=== PATIENT | male | born 1955 | race Caucasian/White ===

== ENCOUNTER 2016-05-25 10:29 | Inpatient (IN) | payer MEDICAID, MEDICARE ==
[~2016-05-25] VITALS: Ht 172.7 cm; Wt 78.6 kg
[2016-05-25] MEDS ORDERED: SODIUM CHLORIDE FLUSH 10ML SYR IVF ONE (11:30)
[2016-05-25] MEDS ORDERED: CLINDAMYCIN PMX 900MG/50ML 50 ML IV ONE (11:30)
[2016-05-25 11:55] LABS: HEMOGLOBIN 12.6 g/dL (13.7-18.0)
[2016-05-25 12:09] LABS: BLOOD UREA NITROGEN 14 mg/dL (7-18)
[2016-05-25 12:13] LABS: ASPARTATE AMINO TRANSFERASE 19 U/L (15-37)
[2016-05-25] MEDS ORDERED: CLINDAMYCIN PMX 900MG/50ML 50 ML ONE (12:14)
[2016-05-25 14:00] VITALS: BP 116/81
[2016-05-25] MEDS ORDERED: THIAMINE 100 MG in SODIUM CHLORIDE 0.9% 50 ML IV SCH (14:30)
[2016-05-25] MEDS ORDERED: THIAMINE 200 MG in SODIUM CHLORIDE 0.9% 50 ML IV ONE (14:30)
[2016-05-25] MEDS: NICOTINE 14MG/24 HR PATCH.TD24 TD SCH (18:18)
[2016-05-25] MEDS: ENOXAPARIN 40 MG/0.4 ML SQ SCH (18:18)
[2016-05-25 19:25] VITALS: BP 119/81
[2016-05-25] MEDS: CLINDAMYCIN PMX 600MG/50ML 50 ML IV SCH (19:52)
[2016-05-25 22:00] VITALS: BP 116/81
[2016-05-25] MEDS: POTASSIUM CHLORIDE 20 MEQ, MAGNESIUM SULFATE 1 GM, FOLIC ACID 1 MG, THIAMINE 100 MG, MV... IV SCH (22:12)
[2016-05-26 01:08] VITALS: BP 132/87
[2016-05-26 01:14] LABS: DAU SCREEN DISCLAIMER
[2016-05-26] MEDS: CLINDAMYCIN PMX 600MG/50ML 50 ML IV SCH ×3 (04:17→21:32)
[2016-05-26 06:18] LABS: HEMOGLOBIN 12.4 g/dL (13.7-18.0)
[2016-05-26 06:32] LABS: ASPARTATE AMINO TRANSFERASE 17 U/L (15-37); BLOOD UREA NITROGEN 13 mg/dL (7-18)
[2016-05-26 07:14] VITALS: BP 146/73
[2016-05-26] MEDS: FOLIC ACID 1 MG TABLET PO SCH (10:01)
[2016-05-26] MEDS ORDERED: LORazepam 1MG TABLET PO PRN (11:30)
[2016-05-26 13:49] VITALS: BP 125/80
[2016-05-26] MEDS: POTASSIUM CHLORIDE 20 MEQ, MAGNESIUM SULFATE 1 GM, FOLIC ACID 1 MG, THIAMINE 100 MG, MV... IV SCH (18:10)
[2016-05-26] MEDS: ENOXAPARIN 40 MG/0.4 ML SQ SCH (18:12)
[2016-05-26] MEDS: NICOTINE 14MG/24 HR PATCH.TD24 TD SCH (18:12)
[2016-05-26 19:36] VITALS: BP 124/79
[2016-05-27 01:27] VITALS: BP 118/85
[2016-05-27] MEDS: CLINDAMYCIN PMX 600MG/50ML 50 ML IV SCH ×3 (04:15→20:43)
[2016-05-27 07:55] VITALS: BP 136/82
[2016-05-27] MEDS: FOLIC ACID 1 MG TABLET PO SCH (09:14)
[2016-05-27 12:38] VITALS: BP 128/78
[2016-05-27] MEDS: ENOXAPARIN 40 MG/0.4 ML SQ SCH (16:53)
[2016-05-27] MEDS: NICOTINE 14MG/24 HR PATCH.TD24 TD SCH (16:53)
[2016-05-27] MEDS ORDERED: FUROSEMIDE 20 MG/2 ML IV ONE (18:00)
[2016-05-27] MEDS: POTASSIUM CHLORIDE 20 MEQ, MAGNESIUM SULFATE 1 GM, FOLIC ACID 1 MG, THIAMINE 100 MG, MV... IV SCH (18:19)
[2016-05-27 19:39] VITALS: BP 102/67
[2016-05-28 03:01] VITALS: BP 113/82
[2016-05-28] MEDS: CLINDAMYCIN PMX 600MG/50ML 50 ML IV SCH ×3 (03:49→20:08)
[2016-05-28 05:45] LABS: HEMOGLOBIN 12.6 g/dL (13.7-18.0)
[2016-05-28 05:55] LABS: BLOOD UREA NITROGEN 11 mg/dL (7-18)
[2016-05-28] MEDS: FOLIC ACID 1 MG TABLET PO SCH (08:49)
[2016-05-28] MEDS: MULTIVITAMIN 1 TABLET PO SCH (08:49)
[2016-05-28] MEDS: MAGNESIUM OXIDE 400 MG TABLET PO SCH (08:49)
[2016-05-28 09:50] VITALS: BP 119/64
[2016-05-28 12:42] VITALS: BP 126/67
[2016-05-28] MEDS: ENOXAPARIN 40 MG/0.4 ML SQ SCH (15:57)
[2016-05-28] MEDS: NICOTINE 14MG/24 HR PATCH.TD24 TD SCH (15:58)
[2016-05-28] MEDS ORDERED: POTASSIUM CHLORIDE 20 MEQ PACKET PO SCH (17:00)
[2016-05-28 20:29] VITALS: BP 120/74
[2016-05-29 01:53] VITALS: BP 125/82
[2016-05-29] MEDS: CLINDAMYCIN PMX 600MG/50ML 50 ML IV SCH ×2 (04:15→12:12)
[2016-05-29 07:29] VITALS: BP 139/89
[2016-05-29] MEDS: MULTIVITAMIN 1 TABLET PO SCH (08:50)
[2016-05-29] MEDS: FOLIC ACID 1 MG TABLET PO SCH (08:50)
[2016-05-29] MEDS: MAGNESIUM OXIDE 400 MG TABLET PO SCH (08:50)
[2016-05-29] MEDS ORDERED: MULT1TAB60 PO (11:43)
[2016-05-29] MEDS ORDERED: CLIN300C93 PO (11:43)
== END 2016-05-29 13:59 | disposition home or self-care (01) | DRG 602 ==
LOC: ED 13:00 → UNDOADMOB 13:01 → 3NE 13:01 → INTOOBSV 13:01 → ED 13:12 → 3NE 13:45
PROVIDERS: ADMIT Hospitalist; ATTEND Hospitalist
DX: L03.115 Cellulitis of right lower limb (principal); I50.33 Acute on chronic diastolic (congestive) heart failure; L03.116 Cellulitis of left lower limb; F10.20 Alcohol dependence, uncomplicated; F17.210 Nicotine dependence, cigarettes, uncomplicated; Z59.0 Homelessness; D53.9 Nutritional anemia, unspecified
CPT/HCPCS: 36415; 71010; 80048; 80053; 80307; 83605; 83880; 84145; 85025; 85651; 87040; 93970; 96365; J1650; J3411; J3475; J3480; J7042; J1940

== ENCOUNTER 2018-01-03 16:49 | Inpatient (IN) | payer MEDICARE, MEDICAID ==
[~2018-01-03] VITALS: Ht 172.7 cm; Wt 89.7 kg
[~2018-01-03 16:49] MED LIST: CLIN300C8 PO; MULT1TAB60 PO
[2018-01-03 18:58] LABS: BASOPHILS # (AUTO) 0.03 x10^3/uL (0-0.1); BASOPHILS % (AUTO) 1 % (0-1); EOSINOPHILS # (AUTO) 0.02 x10^3/uL (0-0.4); EOSINOPHILS % (AUTO) 0 % (1-7); LYMPHOCYTES % (AUTO) 32 % (22-44); MD NO; MEAN CORPUSCULAR HGB CONC 34.3 g/dL (33.2-36.2); MEAN CORPUSCULAR VOLUME 107.9 fL (81-97); MONOCYTES # (AUTO) 0.54 x10^3/uL (0.2-0.8); MONOCYTES % (AUTO) 11 % (2-9); NEUTROPHILS # (AUTO) 2.69 x10^3/uL (1.8-6.8); NEUTROPHILS % (AUTO) 56 % (42-75); PLATELET COUNT 187 x10^3/uL (130-400); RED BLOOD COUNT 3.62 x10^6/uL (4.38-5.82); RED CELL DISTRIBUTION WIDTH 20.6 % (9.4-14.8)
[2018-01-03] MEDS ORDERED: SODIUM CHLORIDE FLUSH 10ML SYR IVF ONE (19:00)
[2018-01-03 19:05] LABS: ALANINE AMINOTRANSFERASE 35 U/L (12-78); ALBUMIN 3.2 g/dL (3.4-5.0); ANION GAP 12 mmol/L (5-15); CALCIUM 7.8 mg/dL (8.5-10.1); CHLORIDE 109 mmol/L (98-107); CREATININE 0.56 mg/dL (0.7-1.3)
[2018-01-03 19:12] LABS: ALKALINE PHOSPHATASE 128 U/L (45-117); BILIRUBIN,TOTAL 0.3 mg/dL (0.2-1.0); TOTAL PROTEIN 7.2 g/dL (6.4-8.2); TROPONIN I < 0.015 ng/mL (0.000-0.045)
[2018-01-03] MEDS ORDERED: POTASSIUM CHLORIDE 20 MEQ TAB.ER.PRT ONE (20:54)
[2018-01-03] MEDS ORDERED: AMPICILLIN/SULBACTAM 3 GM in SODIUM CHLORIDE 0.9% 100 ML IVPB ONE (21:00)
[2018-01-03] MEDS ORDERED: POTASSIUM CHLORIDE 20 MEQ TAB.ER.PRT PO ONE (21:00)
[2018-01-03 23:19] VITALS: BP 137/82
[2018-01-04] MEDS ORDERED: hydrALAzine 20 MG/ML, 1ML IVPush PRN
[2018-01-04] MEDS ORDERED: DOCUSATE 100 MG CAPSULE PO PRN
[2018-01-04] MEDS ORDERED: ACETAMINOPHEN 325 MG TABLET PO PRN
[2018-01-04] MEDS ORDERED: ONDANSETRON ODT 4 MG PO PRN
[2018-01-04] MEDS: ENOXAPARIN 40 MG/0.4 ML SQ SCH (00:26)
[2018-01-04] MEDS: D5%-0.45% NACL 1,000 ML IV SCH ×3 (00:27→20:03)
[2018-01-04] MEDS: AMPICILLIN/SULBACTAM 3 GM in SODIUM CHLORIDE 0.9% 100 ML IV SCH ×4 (03:08→21:45)
[2018-01-04 05:38] VITALS: BP 118/75
[2018-01-04 08:15] VITALS: BP 140/86
[2018-01-04] MEDS: MULTIVITAMIN 1 TABLET PO SCH (08:57)
[2018-01-04] MEDS: FOLIC ACID 1 MG TABLET PO SCH (08:57)
[2018-01-04] MEDS: LORazepam 1MG TABLET PO PRN (08:57)
[2018-01-04 14:58] VITALS: BP 127/79
[2018-01-04 20:35] VITALS: BP 139/77
[2018-01-05] MEDS: LORazepam 1MG TABLET PO PRN (00:37)
[2018-01-05] MEDS: ENOXAPARIN 40 MG/0.4 ML SQ SCH ×2 (00:37→23:37)
[2018-01-05 01:06] VITALS: BP 131/66
[2018-01-05] MEDS: AMPICILLIN/SULBACTAM 3 GM in SODIUM CHLORIDE 0.9% 100 ML IV SCH ×4 (04:53→23:37)
[2018-01-05] MEDS: D5%-0.45% NACL 1,000 ML IV SCH ×3 (05:43→23:36)
[2018-01-05 07:45] VITALS: BP 148/90
[2018-01-05] MEDS: FOLIC ACID 1 MG TABLET PO SCH (09:25)
[2018-01-05] MEDS: MULTIVITAMIN 1 TABLET PO SCH (09:25)
[2018-01-05] MEDS: METOPROLOL TARTRATE 25 MG TABLET PO SCH ×2 (09:26→18:04)
[2018-01-05 12:03] VITALS: BP 147/88
[2018-01-05] MEDS ORDERED: FUROSEMIDE 20 MG/2 ML IV ONE (14:30)
[2018-01-05] MEDS ORDERED: POTASSIUM CHLORIDE 20 MEQ TAB.ER.PRT PO ONE (14:30)
[2018-01-05] MEDS ORDERED: NICOTINE 21 MG/24 HR PATCH.TD24 TD ONE (15:30)
[2018-01-05 20:09] VITALS: BP 136/89
[2018-01-06 00:10] VITALS: BP 139/80
[2018-01-06 05:34] VITALS: BP 147/94
[2018-01-06] MEDS: METOPROLOL TARTRATE 25 MG TABLET PO SCH (05:36)
[2018-01-06] MEDS: AMPICILLIN/SULBACTAM 3 GM in SODIUM CHLORIDE 0.9% 100 ML IV SCH (05:36)
[2018-01-06 06:54] VITALS: BP 137/92
== END 2018-01-06 07:38 | disposition left against medical advice (07) | DRG 602 ==
LOC: ED 17:30 → EDIP 22:06 → 4WST 23:14
PROVIDERS: ADMIT Internal Medicine; ATTEND Internal Medicine
DX: L03.115 Cellulitis of right lower limb (principal); J96.21 Acute and chronic respiratory failure with hypoxia; I50.30 Unspecified diastolic (congestive) heart failure; L03.116 Cellulitis of left lower limb; F10.229 Alcohol dependence with intoxication, unspecified; N49.2 Inflammatory disorders of scrotum; Z53.21 Procedure and treatment not carried out due to patient leaving prior to being seen by health care provider; E87.6 Hypokalemia; F17.200 Nicotine dependence, unspecified, uncomplicated; Z59.0 Homelessness; R29.6 Repeated falls; N50.89 Other specified disorders of the male genital organs; I87.8 Other specified disorders of veins; I48.91 Unspecified atrial fibrillation
CPT/HCPCS: 36415; 71045; 80053; 82962; 83880; 84484; 85025; 93005; 93306; 96365; G0378; J0295; J1650; J1940

== ENCOUNTER 2018-02-20 04:42 | Emergency (ER) | payer SELFPAY | END 2018-02-20 05:08 | disposition home or self-care (01) | LOC: ED 04:55 | DX: Z02.9 Encounter for administrative examinations, unspecified (principal) ==

== ENCOUNTER 2018-07-07 10:09 | Inpatient (IN) | payer MEDICARE, OTHER ==
[~2018-07-07] VITALS: Ht 172.7 cm; Wt 76.1 kg
[2018-07-07] MEDS: INSULIN LISPRO 100 UNITS/ML, PEN SQ-INSULIN SCH (00:15)
[~2018-07-07 10:09] MED LIST changes: +ETOMIDATE 20 MG/10 ML ONE; +PROPOFOL 10 MG/ML, 100ML IV ONE; +SUCCINYLCHOLINE 20 MG/ML, 10ML ONE
--- NOTE | 2018-07-07 10:30 | NUR ---
Late entry - Pt BIB EMS for weakness and difficulty with ambulation. Pt A&OX4. States he normally drinks 1 - 2 pints per day. States last drink 1.5 days ago. Pt appears slightly tremulous. Pt states he is unable to stand or walk. Transferred to [facility]. Upon initial assessment pt HR noted to be rapid and irregular. CP moniotrs applied. Spo2 on RA 83%, O2 applied and sats mainatining >90%. Insects found on pt, appears to be lice. Contact precautions in place. Pt is a poor historian but states he has a history of seizures. not on any medications at this time.
[2018-07-07] MEDS ORDERED: DILTIAZEM 5 MG/ML, 10ML ONE (10:33)
[2018-07-07] MEDS ORDERED: DILTIAZEM 125 MG in DEXTROSE 5% 100 ML IV SCH (10:33)
[2018-07-07 10:48] LABS: ALBUMIN 2.3 g/dL (3.4-5.0); ANION GAP 12 mmol/L (5-15); CALCIUM 8.3 mg/dL (8.5-10.1); CHLORIDE 93 mmol/L (98-107); CREATININE 0.79 mg/dL (0.7-1.3)
[2018-07-07 10:54] LABS: INTERNATIONAL NORMALIZED RATIO 1.09 (0.93-1.1); PROTHROMBIN TIME 11.4 Seconds (9.6-11.5)
[2018-07-07] MEDS ORDERED: SODIUM CHLORIDE 0.9% 1,000 ML IV ONE (10:59)
[2018-07-07] MEDS ORDERED: AZITHROMYCIN 500 MG in SODIUM CHLORIDE 0.9% 250 ML IVPB ONE (11:00)
[2018-07-07] MEDS ORDERED: CEFTRIAXONE PMX 1GM/50ML 50 ML IVPB ONE (11:00)
[2018-07-07] MEDS ORDERED: DILTIAZEM 5 MG/ML, 5ML IV ONE (11:00)
[2018-07-07] MEDS ORDERED: SODIUM CHLORIDE FLUSH 10ML SYR IVF ONE ×2 (11:00)
[2018-07-07] MEDS ORDERED: SODIUM CHLORIDE 0.9% 1,000ML IVBOLUS ONE ×4 (11:00→23:30)
[2018-07-07 11:07] LABS: TROPONIN I < 0.015 ng/mL (0.000-0.045)
--- NOTE | 2018-07-07 11:46 | NUR ---
Lab at bedside attempting blood draw for cultures with difficulty. Will start abx therapy once BC obtained. Md notified of pt BP, new orders recieved and implemented.
[2018-07-07] MEDS ORDERED: CEFTRIAXONE PMX 1GM/50ML 50 ML ONE (11:55)
[2018-07-07] MEDS ORDERED: SODIUM CHLORIDE FLUSH 10ML SYR IVF PRN (12:30)
[2018-07-07 12:33] LABS: MEAN CORPUSCULAR HEMOGLOBIN 32.9 pg (27.5-34.5); MEAN CORPUSCULAR VOLUME 99.6 fL (81-97); RED CELL DISTRIBUTION WIDTH 18.6 % (9.4-14.8)
--- NOTE | 2018-07-07 12:38 | NUR ---
Pt incontinent of urine and feces, refusing to change out of soiled clothes at this time. Pt linens changed.
[2018-07-07 12:46] LABS: MEAN PLATELET VOLUME 8.7 fL (7.4-10.4); PLATELET COUNT 70 x10^3/uL (130-400)
[2018-07-07 12:47] LABS: MD YES
[2018-07-07 12:50] LABS: ANISOCYTOSIS 1+; BAND#(MANUAL) 1.04 x10^3/uL; BANDS%(MANUAL) 23 % (0-7); EOS#(MANUAL) 0.05 x10^3/uL (0.0-0.4); EOS% (MANUAL) 1 % (1-7); LYMPH#(MANUAL) 0.18 x10^3/uL (1-3.4); LYMPHS% (MANUAL) 4 % (22-44); MONOS#(MANUAL) 0.09 x10^3/uL (0.3-2.7); MONOS% (MANUAL) 2 % (2-9); SEG#(MANUAL) 3.15 x10^3/uL (1.8-6.8); SEGS% (MANUAL) 70 % (42-75)
[2018-07-07 12:52] LABS: <PLATELET ESTIMATE> DECREASED; <PLT MORPHOLOGY> NORMAL PLT MORPH; PMNS WITH VACUOLES 1+; TOXIC GRAN 2+
[2018-07-07] MEDS ORDERED: D5%-0.9% NACL+KCL 20MEQ 1,000 ML IV SCH (13:30)
[2018-07-07] MEDS ORDERED: ENOXAPARIN 40 MG/0.4 ML SQ SCH (13:30)
[2018-07-07] MEDS ORDERED: NICOTINE 14MG/24 HR PATCH.TD24 TD SCH (13:30)
[2018-07-07] MEDS ORDERED: morphine SULFATE 10 MG/ML, 1ML IVPush PRN (13:30)
[2018-07-07] MEDS ORDERED: ACETAMINOPHEN 325 MG TABLET PO PRN (13:30)
[2018-07-07] MEDS ORDERED: DOCUSATE 100 MG CAPSULE PO PRN (13:30)
[2018-07-07] MEDS ORDERED: LORazepam 0.5MG TABLET PO PRN (13:30)
[2018-07-07] MEDS ORDERED: ONDANSETRON ODT 4 MG PO PRN (13:30)
[2018-07-07] MEDS ORDERED: LORazepam 2 MG/ML, 1ML IV PRN ×5 (13:30)
[2018-07-07] MEDS ORDERED: OXYcodone IR 5MG TABLET PO PRN (13:30)
[2018-07-07] MEDS ORDERED: hydrALAzine 20 MG/ML, 1ML IVPush PRN (13:30)
[2018-07-07] MEDS ORDERED: CEFTRIAXONE PMX 1GM/50ML 50 ML IV ONE (13:30)
[2018-07-07] MEDS ORDERED: ONDANSETRON 2MG/ML, 2ML IVPush PRN (13:30)
[2018-07-07] MEDS ORDERED: LORazepam 1MG TABLET PO PRN ×4 (13:30)
[2018-07-07] MEDS ORDERED: POLYETHYLENE GLYCOL 17 GM PACKET PO PRN (13:30)
[2018-07-07] MEDS ORDERED: BISACODYL 10 MG SUPP PR PRN ×2 (13:30→19:30)
[2018-07-07] MEDS ORDERED: PROMETHAZINE 25 MG/ML, 1ML IM PRN (13:30)
[2018-07-07 13:45] LABS: FREE T4 (FREE THYROXINE) 1.13 ng/dL (0.76-1.46); THYROID STIMULATING HORMONE 1.47 mIU/L (0.358-3.740)
[2018-07-07 13:53] LABS: ALBUMIN 2.3 g/dL (3.4-5.0)
[2018-07-07 14:01] LABS: HEMOGLOBIN A1C 5.7 % (4.2-6.3)
[2018-07-07] MEDS ORDERED: ENOXAPARIN 40 MG/0.4 ML ONE (14:03)
[2018-07-07] MEDS ORDERED: NICOTINE 14MG/24 HR PATCH.TD24 ONE (14:03)
[2018-07-07] MEDS ORDERED: LORazepam 2 MG/ML, 1ML ONE ×2 (14:04→18:53)
[2018-07-07 14:17] LABS: BILIRUBIN, DIRECT 1.5 mg/dL (0.1-0.2); BILIRUBIN,INDIRECT 0.8 mg/dL (0.0-2.0); BILIRUBIN,TOTAL 2.3 mg/dL (0.2-1.0); FOLATE LEVEL 5.1 ng/mL (3.1-17.5); TOTAL PROTEIN 6.9 g/dL (6.4-8.2)
--- NOTE | 2018-07-07 14:18 | NUR ---
Patient tremulous and tachycardic. Ativan, lovenox, and nicotene patch admin. Patient refusing to remove pants to be cleaned. Will continue to monitor.
--- NOTE | 2018-07-07 14:52 | NUR ---
BP = 106/67 HR = 140 despite cardizem and ativan admin. RN attempted to call MD Tita. Tita states he is in a patient's room and to call back in 5 min.
[2018-07-07] MEDS ORDERED: PIPERONYL BUTOXIDE/PYRETHRINS SHAMPOO TP ONE (15:00)
--- NOTE | 2018-07-07 15:03 | NUR ---
RN spoke to MD melissa Rivers MD to place order for digoxin.
[2018-07-07] MEDS ORDERED: DIGOXIN 0.25 MG/ML, 2ML ONE (15:08)
[2018-07-07] MEDS ORDERED: DIGOXIN 0.25 MG/ML, 2ML IVPush ONE (15:30)
--- NOTE | 2018-07-07 16:06 | NUR ---
Patient cleaned with lice shampoo, linens changed, and head shaved. Repositioned for comfort.
--- NOTE | 2018-07-07 16:07 | NUR ---
Report to TIFFANIE Webb.
[2018-07-07] MEDS ORDERED: LORazepam 20 MG in SODIUM CHLORIDE 0.9% 240 ML IV PRN (18:30)
[2018-07-07] MEDS ORDERED: SODIUM CHLORIDE 0.9% IV ONE (19:00)
[2018-07-07] MEDS ORDERED: LORazepam 2 MG/ML, 1ML IVPush ONE ×3 (19:00→20:00)
[2018-07-07] MEDS ORDERED: PHENOBARBITAL SODIUM IV ONE (19:00)
[2018-07-07] MEDS ORDERED: DEXTROSE 50%, 50ML SYRINGE IVPush PRN (19:30)
[2018-07-07] MEDS ORDERED: LIDOCAINE-MPF 1%, 2ML ENDO PRN (19:30)
[2018-07-07] MEDS ORDERED: PHARMACY MAY ADJ FOR RENAL FX MC SCH (19:30)
[2018-07-07] MEDS ORDERED: GLUCAGON 1 MG IM PRN (19:30)
[2018-07-07] MEDS ORDERED: SODIUM CHLORIDE 0.9% 1,000 ML IV SCH (19:30)
[2018-07-07] MEDS ORDERED: DEXTROSE 4 GM TAB.CHEW PO PRN (19:30)
[2018-07-07] MEDS ORDERED: DILTIAZEM 125 MG in SODIUM CHLORIDE 0.9% 100 ML IV PRN (19:30)
[2018-07-07] MEDS: AMPICILLIN/SULBACTAM 3 GM in SODIUM CHLORIDE 0.9% 100 ML IV SCH (19:30)
[2018-07-07] MEDS ORDERED: FENTANYL PF 100 MCG/2ML IVPush PRN (19:30)
[2018-07-07] MEDS: ALBUTEROL/IPRATROPIUM 2.5MG/0.5MG, 3 ML INLINE SCH ×2 (19:30→22:52)
[2018-07-07] MEDS ORDERED: SENNA/DOCUSATE TABLET NG PRN (19:30)
[2018-07-07] MEDS ORDERED: SENNA 176 MG/5 ML ORAL SOL NG PRN (19:30)
[2018-07-07] MEDS ORDERED: LACTULOSE 20 GM/30 ML UDC NG PRN (19:30)
[2018-07-07 20:21] LABS: INTERNATIONAL NORMALIZED RATIO 1.02 (0.93-1.1); PROTHROMBIN TIME 10.7 Seconds (9.6-11.5)
[2018-07-07 20:24] LABS: TRIGLYCERIDES 181 mg/dL (50-200)
[2018-07-07 20:25] LABS: SALICYLATE LEVEL 4.3 mg/dL (2.8-20.0)
[2018-07-07 20:28] LABS: ACETAMINOPHEN < 2 mcg/mL (10-30); TROPONIN I < 0.015 ng/mL (0.000-0.045)
[2018-07-07 20:28] LABS: MICROSCOPIC INDICATED
[2018-07-07 20:32] LABS: AMPHETAMINE SCREEN, URINE Negative (Negative); BARBITURATE SCREEN, URINE Negative (Negative); BENZODIAZEPINE SCREEN, URINE Negative (Negative); CANNABINOID SCREEN, URINE Negative (Negative); COCAINE SCREEN, URINE Negative (Negative); METHADONE SCREEN, URINE Negative (Negative); OPIATE SCREEN, URINE Negative (Negative)
[2018-07-07 20:37] LABS: MD YES; MEAN CORPUSCULAR HEMOGLOBIN 33.8 pg (27.5-34.5); MEAN CORPUSCULAR VOLUME 99.5 fL (81-97); MEAN PLATELET VOLUME 8.5 fL (7.4-10.4); PLATELET COUNT 59 x10^3/uL (130-400); RED CELL DISTRIBUTION WIDTH 19.1 % (9.4-14.8)
[2018-07-07 20:43] LABS: CULTURE INDICATED? NO
[2018-07-07 20:47] LABS: BAND#(MANUAL) 0.59 x10^3/uL; BANDS%(MANUAL) 18 % (0-7); LYMPHS% (MANUAL) 6 % (22-44); MONOS#(MANUAL) 0.13 x10^3/uL (0.3-2.7); MONOS% (MANUAL) 4 % (2-9); SEG#(MANUAL) 2.38 x10^3/uL (1.8-6.8); SEGS% (MANUAL) 72 % (42-75)
[2018-07-07 20:48] LABS: <PLATELET ESTIMATE> DECREASED; <PLT MORPHOLOGY> NORMAL PLT MORPH; ANISOCYTOSIS 1+; TARGET CELLS 1+
[2018-07-07 20:49] LABS: PMNS WITH VACUOLES 1+; TOXIC GRAN 2+
[2018-07-07] MEDS ORDERED: ALBUMIN HUMAN 5% 500 ML IV PRN (21:00)
[2018-07-07] MEDS: SODIUM CHLORIDE FLUSH 10ML SYR IVF SCH (21:00)
[2018-07-07] MEDS ORDERED: AMIODARONE 900 MG in DEXTROSE 5% 482 ML IV PRN (21:00)
[2018-07-07] MEDS ORDERED: ALBUMIN HUMAN 25% 100 ML IV ONE (23:30)
[2018-07-08 02:30] LABS: ALANINE AMINOTRANSFERASE 37 U/L (12-78); ALBUMIN 2.4 g/dL (3.4-5.0); ANION GAP 11 mmol/L (5-15); CALCIUM 7.1 mg/dL (8.5-10.1); CHLORIDE 105 mmol/L (98-107)
[2018-07-08] MEDS ORDERED: NOREPINEPHRINE 4 MG in SODIUM CHLORIDE 0.9% 246 ML IV PRN (02:30)
[2018-07-08 02:33] LABS: ALKALINE PHOSPHATASE 47 U/L (45-117); BILIRUBIN,TOTAL 1.3 mg/dL (0.2-1.0); CHOLESTEROL, TOTAL 64 mg/dL (140-239); HDL CHOL % 13 % (26-37); HDL CHOLESTEROL (DIRECT) 8 mg/dL (40-60); LDL CHOLESTEROL,CALCULATED 12 mg/dL (54-169); LDL/HDL RATIO 1.5 (0.5-3.0); TOTAL PROTEIN 5.5 g/dL (6.4-8.2); TRIGLYCERIDES 220 mg/dL (50-200); VLDL CHOLESTEROL 44 mg/dL (0-25)
[2018-07-08 02:46] LABS: MEAN CORPUSCULAR HEMOGLOBIN 33.1 pg (27.5-34.5); MEAN CORPUSCULAR HGB CONC 33.3 g/dL (33.2-36.2); MEAN CORPUSCULAR VOLUME 99.2 fL (81-97); MEAN PLATELET VOLUME 8.8 fL (7.4-10.4); PLATELET COUNT 51 x10^3/uL (130-400); RED BLOOD COUNT 3.18 x10^6/uL (4.38-5.82); RED CELL DISTRIBUTION WIDTH 18.4 % (9.4-14.8)
[2018-07-08 02:52] LABS: CREATINE KINASE, TOTAL 434 U/L (39-308); TROPONIN I < 0.015 ng/mL (0.000-0.045)
[2018-07-08 03:17] LABS: BASOPHILS # (AUTO) 0.01 x10^3/uL (0-0.1); BASOPHILS % (AUTO) 0 % (0-1); EOSINOPHILS % (AUTO) 0 % (1-7); LYMPHOCYTES # (AUTO) 0.42 x10^3/uL (1-3.4); LYMPHOCYTES % (AUTO) 16 % (22-44); MD SCAN; MONOCYTES # (AUTO) 0.07 x10^3/uL (0.2-0.8); MONOCYTES % (AUTO) 3 % (2-9); NEUTROPHILS # (AUTO) 2.17 x10^3/uL (1.8-6.8); NEUTROPHILS % (AUTO) 82 % (42-75)
[2018-07-08] MEDS: AMPICILLIN/SULBACTAM 3 GM in SODIUM CHLORIDE 0.9% 100 ML IV SCH (03:27)
[2018-07-08] MEDS: ALBUTEROL/IPRATROPIUM 2.5MG/0.5MG, 3 ML INLINE SCH ×6 (03:30→22:35)
[2018-07-08 04:00] VITALS: BP 89/55
[2018-07-08 04:12] VITALS: BP 96/48
[2018-07-08] MEDS ORDERED: VANCOMYCIN 1,600 MG in SODIUM CHLORIDE 0.9% 250 ML IV SCH (06:00)
[2018-07-08] MEDS ORDERED: PHARMACOKINETIC CONSULTATION MC ONE (06:00)
[2018-07-08] MEDS ORDERED: VANCOMYCIN PER PHARMACY MC PRN (06:00)
[2018-07-08] MEDS ORDERED: ASPIRIN 325 MG TABLET EC PO SCH (06:00)
[2018-07-08] MEDS ORDERED: PHARMACOKINETIC MONITORING MC PRN (06:00)
[2018-07-08] MEDS: INSULIN LISPRO 100 UNITS/ML, PEN SQ-INSULIN SCH ×4 (06:12→21:00)
[2018-07-08] MEDS: POTASSIUM CHLORIDE 20 MEQ, MAGNESIUM SULFATE 1 GM, MVI ADULT 10 ML, THIAMINE 200 MG, FO... IV SCH (07:00)
[2018-07-08 08:47] LABS: RAPID INFLUENZA A Negative (Negative); RAPID INFLUENZA B Negative (Negative)
[2018-07-08] MEDS ORDERED: MULTIVITAMINS/MINERALS TABLET PO SCH (09:00)
[2018-07-08] MEDS ORDERED: FOLIC ACID 1 MG TABLET PO SCH (09:00)
[2018-07-08] MEDS ORDERED: THIAMINE 100MG TABLET PO SCH ×2 (09:00)
[2018-07-08] MEDS ORDERED: DIGOXIN 0.25 MG/ML, 2ML IVPush SCH (09:00)
[2018-07-08] MEDS: CEFTRIAXONE PMX 1GM/50ML 50 ML IV SCH (09:12)
[2018-07-08] MEDS: METRONIDAZOLE PMX 500MG/100ML 100 ML IV SCH ×3 (09:12→23:01)
[2018-07-08] MEDS: POTASSIUM CHLORIDE 10% 40 MEQ/30 ML UDC PO SCH ×2 (09:12→21:45)
[2018-07-08] MEDS: DIAZEPAM 5 MG/ML, 2ML IV SCH ×4 (09:13→21:44)
[2018-07-08] MEDS: SODIUM CHLORIDE FLUSH 10ML SYR IVF SCH ×2 (09:13→21:45)
[2018-07-08] MEDS ORDERED: CEFTRIAXONE PMX 2GM/50ML 50 ML IV SCH (10:00)
[2018-07-08] MEDS ORDERED: VASOPRESSIN 100 UNIT in SODIUM CHLORIDE 0.9% 495 ML IV PRN (10:00)
[2018-07-08] MEDS ORDERED: AZITHROMYCIN 500 MG in SODIUM CHLORIDE 0.9% 250 ML IV SCH (10:00)
[2018-07-08] MEDS: ERGOCALCIFEROL 50,000 UNIT CAPSULE PO SCH (10:11)
[2018-07-08] MEDS: HEPARIN 5,000 UNITS/ML, 1ML SQ SCH ×2 (10:11→17:57)
[2018-07-08] MEDS: PROPOFOL 100 ML IV PRN (15:15)
[2018-07-08] MEDS ORDERED: FENTANYL PF 2,500 MCG in SODIUM CHLORIDE 0.9% 200 ML IV PRN (17:30)
[2018-07-09] MEDS: DIAZEPAM 5 MG/ML, 2ML IV SCH ×6 (00:56→21:48)
[2018-07-09] MEDS: PROPOFOL 100 ML IV PRN ×4 (00:56→23:23)
[2018-07-09] MEDS: HEPARIN 5,000 UNITS/ML, 1ML SQ SCH ×3 (01:54→17:22)
[2018-07-09] MEDS ORDERED: NOREPINEPHRINE 4 MG in SODIUM CHLORIDE 0.9% 246 ML IV PRN (02:30)
[2018-07-09] MEDS: ALBUTEROL/IPRATROPIUM 2.5MG/0.5MG, 3 ML INLINE SCH ×6 (03:40→22:16)
[2018-07-09 04:00] VITALS: BP 94/64
[2018-07-09 04:13] LABS: MEAN CORPUSCULAR HEMOGLOBIN 34.3 pg (27.5-34.5); MEAN CORPUSCULAR HGB CONC 34.3 g/dL (33.2-36.2); MEAN CORPUSCULAR VOLUME 99.9 fL (81-97); MEAN PLATELET VOLUME 8.1 fL (7.4-10.4); RED BLOOD COUNT 3.53 x10^6/uL (4.38-5.82); RED CELL DISTRIBUTION WIDTH 19.5 % (9.4-14.8)
[2018-07-09 04:15] LABS: PLATELET COUNT 47 x10^3/uL (130-400)
[2018-07-09 04:26] LABS: BASOPHILS # (AUTO) 0.01 x10^3/uL (0-0.1); BASOPHILS % (AUTO) 0 % (0-1); EOSINOPHILS # (AUTO) 0.05 x10^3/uL (0-0.4); EOSINOPHILS % (AUTO) 1 % (1-7); LYMPHOCYTES # (AUTO) 0.53 x10^3/uL (1-3.4); LYMPHOCYTES % (AUTO) 11 % (22-44); MD SCAN; MONOCYTES # (AUTO) 0.22 x10^3/uL (0.2-0.8); MONOCYTES % (AUTO) 5 % (2-9); NEUTROPHILS # (AUTO) 4.11 x10^3/uL (1.8-6.8); NEUTROPHILS % (AUTO) 83 % (42-75)
[2018-07-09] MEDS: CEFTRIAXONE PMX 1GM/50ML 50 ML IV SCH (05:53)
[2018-07-09] MEDS ORDERED: MAGNESIUM SULFATE PMX 4GM/100M 100 ML IV ONE (06:30)
[2018-07-09] MEDS ORDERED: SODIUM PHOSPHATE 20 MMOL in SODIUM CHLORIDE 0.9% 500 ML IV ONE (06:30)
[2018-07-09 06:45] LABS: ANION GAP 9 mmol/L (5-15); CHLORIDE 119 mmol/L (98-107)
[2018-07-09 06:46] LABS: CREATININE 0.19 mg/dL (0.7-1.3)
[2018-07-09 06:52] LABS: CALCIUM 5.8 mg/dL (8.5-10.1)
[2018-07-09] MEDS: INSULIN LISPRO 100 UNITS/ML, PEN SQ-INSULIN SCH ×3 (07:00→21:36)
[2018-07-09] MEDS: POTASSIUM CHLORIDE 10% 40 MEQ/30 ML UDC PO SCH ×2 (09:09→21:47)
[2018-07-09] MEDS: SODIUM CHLORIDE FLUSH 10ML SYR IVF SCH ×2 (09:10→21:36)
[2018-07-09] MEDS ORDERED: CALCIUM CHLORIDE 13.6 MEQ in SODIUM CHLORIDE 0.9% 100 ML IV ONE (10:00)
[2018-07-09] MEDS: POTASSIUM CHLORIDE 20 MEQ, MAGNESIUM SULFATE 1 GM, MVI ADULT 10 ML, THIAMINE 200 MG, FO... IV SCH (10:50)
--- NOTE | 2018-07-09 11:28 | NUR ---
TF GOAL: w/ propofol: PROMOTE @ 75ml/hr off propofol: PROMOTE @ 80ml/hr
[2018-07-09] MEDS: ERTAPENEM 1 GM in SODIUM CHLORIDE 0.9% 50 ML IV SCH (12:31)
[2018-07-10] MEDS: DIAZEPAM 5 MG/ML, 2ML IV SCH ×2 (01:13→04:33)
[2018-07-10] MEDS: HEPARIN 5,000 UNITS/ML, 1ML SQ SCH ×3 (02:26→17:15)
[2018-07-10] MEDS: ALBUTEROL/IPRATROPIUM 2.5MG/0.5MG, 3 ML INLINE SCH ×6 (03:00→22:32)
[2018-07-10 04:00] VITALS: BP 85/55
[2018-07-10] MEDS: INSULIN LISPRO 100 UNITS/ML, PEN SQ-INSULIN SCH ×3 (04:02→15:00)
[2018-07-10 04:37] LABS: MEAN CORPUSCULAR HEMOGLOBIN 34.2 pg (27.5-34.5); MEAN CORPUSCULAR HGB CONC 34.6 g/dL (33.2-36.2); MEAN CORPUSCULAR VOLUME 98.9 fL (81-97); MEAN PLATELET VOLUME 9.6 fL (7.4-10.4); PLATELET COUNT 74 x10^3/uL (130-400); RED BLOOD COUNT 3.56 x10^6/uL (4.38-5.82); RED CELL DISTRIBUTION WIDTH 19.7 % (9.4-14.8)
[2018-07-10 04:45] LABS: ANION GAP 5 mmol/L (5-15); CALCIUM 8.2 mg/dL (8.5-10.1); CHLORIDE 105 mmol/L (98-107); CREATININE 0.51 mg/dL (0.7-1.3)
[2018-07-10 04:47] LABS: TRIGLYCERIDES 154 mg/dL (50-200)
[2018-07-10 05:21] LABS: MD YES
[2018-07-10 05:23] LABS: BAND#(MANUAL) 0.55 x10^3/uL; BANDS%(MANUAL) 6 % (0-7); LYMPH#(MANUAL) 0.74 x10^3/uL (1-3.4); LYMPHS% (MANUAL) 8 % (22-44); METAMYELOCYTES# (MANUAL) 0.09 x10^3/uL (0-0); METAMYELOCYTES% (MANUAL) 1 % (0-1); MONOS#(MANUAL) 0.18 x10^3/uL (0.3-2.7); MONOS% (MANUAL) 2 % (2-9); SEG#(MANUAL) 7.64 x10^3/uL (1.8-6.8); SEGS% (MANUAL) 83 % (42-75)
[2018-07-10 05:24] LABS: <PLATELET ESTIMATE> DECREASED; <PLT MORPHOLOGY> NORMAL PLT MORPH; PMNS WITH VACUOLES 1+; TOXIC GRAN 1+
[2018-07-10] MEDS: NOREPINEPHRINE 4 MG in SODIUM CHLORIDE 0.9% 246 ML IV PRN (05:44)
[2018-07-10] MEDS: PROPOFOL 100 ML IV PRN ×2 (05:52→19:44)
[2018-07-10] MEDS: POTASSIUM CHLORIDE 20 MEQ, MAGNESIUM SULFATE 1 GM, MVI ADULT 10 ML, THIAMINE 200 MG, FO... IV SCH (09:09)
[2018-07-10] MEDS: POTASSIUM CHLORIDE 10% 40 MEQ/30 ML UDC PO SCH ×2 (09:12→21:36)
[2018-07-10] MEDS: SODIUM CHLORIDE FLUSH 10ML SYR IVF SCH ×2 (09:15→21:36)
[2018-07-10] MEDS: ERTAPENEM 1 GM in SODIUM CHLORIDE 0.9% 50 ML IV SCH (12:53)
[2018-07-11] MEDS ORDERED: FUROSEMIDE 40 MG/4 ML IV ONE (01:00)
[2018-07-11] MEDS: ALBUTEROL/IPRATROPIUM 2.5MG/0.5MG, 3 ML INLINE SCH ×6 (02:21→23:00)
[2018-07-11] MEDS: HEPARIN 5,000 UNITS/ML, 1ML SQ SCH ×3 (02:40→17:24)
[2018-07-11] MEDS: NOREPINEPHRINE 4 MG in SODIUM CHLORIDE 0.9% 246 ML IV PRN (02:42)
[2018-07-11 04:00] VITALS: BP 102/62
[2018-07-11 04:43] LABS: MEAN CORPUSCULAR HEMOGLOBIN 34.1 pg (27.5-34.5); MEAN CORPUSCULAR HGB CONC 34.3 g/dL (33.2-36.2); MEAN CORPUSCULAR VOLUME 99.3 fL (81-97); MEAN PLATELET VOLUME 9.8 fL (7.4-10.4); PLATELET COUNT 138 x10^3/uL (130-400); RED BLOOD COUNT 3.36 x10^6/uL (4.38-5.82); RED CELL DISTRIBUTION WIDTH 19.6 % (9.4-14.8)
[2018-07-11 04:45] LABS: ANION GAP 4 mmol/L (5-15); CALCIUM 8.3 mg/dL (8.5-10.1); CHLORIDE 104 mmol/L (98-107)
[2018-07-11 04:47] LABS: CREATININE 0.37 mg/dL (0.7-1.3)
[2018-07-11] MEDS: PROPOFOL 100 ML IV PRN ×2 (05:16→21:11)
[2018-07-11 05:17] LABS: BASOPHILS # (AUTO) 0.02 x10^3/uL (0-0.1); BASOPHILS % (AUTO) 0 % (0-1); EOSINOPHILS % (AUTO) 3 % (1-7); LYMPHOCYTES # (AUTO) 1.39 x10^3/uL (1-3.4); LYMPHOCYTES % (AUTO) 13 % (22-44); MD SCAN; MONOCYTES # (AUTO) 0.38 x10^3/uL (0.2-0.8); MONOCYTES % (AUTO) 4 % (2-9); NEUTROPHILS # (AUTO) 9.02 x10^3/uL (1.8-6.8); NEUTROPHILS % (AUTO) 81 % (42-75)
[2018-07-11] MEDS ORDERED: MAGNESIUM SULFATE PMX 2GM/50ML 50 ML IV ONE (05:30)
[2018-07-11] MEDS ORDERED: PHARMACOKINETIC MONITORING MC PRN (07:00)
[2018-07-11] MEDS ORDERED: VANCOMYCIN PER PHARMACY MC PRN (07:00)
[2018-07-11] MEDS: SODIUM CHLORIDE FLUSH 10ML SYR IVF SCH ×2 (08:17→21:08)
[2018-07-11] MEDS: POTASSIUM CHLORIDE 10% 40 MEQ/30 ML UDC PO SCH ×3 (08:17→21:07)
[2018-07-11] MEDS ORDERED: FUROSEMIDE 20 MG/2 ML IV ONE (09:30)
[2018-07-11] MEDS: VANCOMYCIN 1,600 MG in SODIUM CHLORIDE 0.9% 250 ML IV SCH ×2 (10:07→21:09)
[2018-07-11] MEDS ORDERED: POTASSIUM CHLORIDE 10% 20 MEQ/15 ML UDC PO ONE (10:30)
[2018-07-11] MEDS ORDERED: POTASSIUM CHLORIDE 10% 40 MEQ/30 ML UDC PO ONE (10:30)
[2018-07-11] MEDS ORDERED: POTASSIUM CHLORIDE 20 MEQ PACKET PO ONE (10:30)
[2018-07-11] MEDS: ERTAPENEM 1 GM in SODIUM CHLORIDE 0.9% 50 ML IV SCH (11:59)
[2018-07-11] MEDS: POTASSIUM CHLORIDE 20 MEQ, MAGNESIUM SULFATE 1 GM, MVI ADULT 10 ML, THIAMINE 200 MG, FO... IV SCH (14:47)
[2018-07-11] MEDS ORDERED: OMNIPAQUE 350 MG/ML, 100ML BOTTLE ONE (15:59)
[2018-07-12] MEDS: ALBUTEROL/IPRATROPIUM 2.5MG/0.5MG, 3 ML INLINE SCH ×6 (02:33→22:41)
[2018-07-12] MEDS: HEPARIN 5,000 UNITS/ML, 1ML SQ SCH ×3 (03:04→17:27)
[2018-07-12 04:38] LABS: ANION GAP 3 mmol/L (5-15); BASOPHILS # (AUTO) 0.01 x10^3/uL (0-0.1); BASOPHILS % (AUTO) 0 % (0-1); CALCIUM 8.3 mg/dL (8.5-10.1); CHLORIDE 102 mmol/L (98-107); CREATININE 0.47 mg/dL (0.7-1.3); EOSINOPHILS % (AUTO) 2 % (1-7); LYMPHOCYTES # (AUTO) 1.28 x10^3/uL (1-3.4); LYMPHOCYTES % (AUTO) 13 % (22-44); MD NO; MEAN CORPUSCULAR HEMOGLOBIN 34.1 pg (27.5-34.5); MEAN CORPUSCULAR HGB CONC 34.2 g/dL (33.2-36.2); MEAN CORPUSCULAR VOLUME 99.6 fL (81-97); MEAN PLATELET VOLUME 9.6 fL (7.4-10.4); MONOCYTES # (AUTO) 0.29 x10^3/uL (0.2-0.8); MONOCYTES % (AUTO) 3 % (2-9); NEUTROPHILS # (AUTO) 8.04 x10^3/uL (1.8-6.8); NEUTROPHILS % (AUTO) 82 % (42-75); PLATELET COUNT 180 x10^3/uL (130-400); RED BLOOD COUNT 3.08 x10^6/uL (4.38-5.82); RED CELL DISTRIBUTION WIDTH 18.9 % (9.4-14.8)
[2018-07-12] MEDS ORDERED: FUROSEMIDE 20 MG/2 ML IV ONE (09:30)
[2018-07-12] MEDS: SODIUM CHLORIDE FLUSH 10ML SYR IVF SCH ×2 (10:18→20:55)
[2018-07-12] MEDS: VANCOMYCIN 1,600 MG in SODIUM CHLORIDE 0.9% 250 ML IV SCH (10:19)
[2018-07-12] MEDS: PROPOFOL 100 ML IV PRN (10:21)
[2018-07-12] MEDS: ERTAPENEM 1 GM in SODIUM CHLORIDE 0.9% 50 ML IV SCH (10:22)
[2018-07-12] MEDS ORDERED: PNEUMOC 13-VALENT VACC, 0.5 ML IM-VACC ONE (16:00)
[2018-07-12] MEDS: POTASSIUM CHLORIDE 20 MEQ, MAGNESIUM SULFATE 1 GM, MVI ADULT 10 ML, THIAMINE 200 MG, FO... IV SCH (16:05)
[2018-07-12] MEDS: CEFTAROLINE 600 MG in SODIUM CHLORIDE 0.9% 100 ML IV SCH (17:26)
[2018-07-13] MEDS: PROPOFOL 100 ML IV PRN (01:28)
[2018-07-13] MEDS: HEPARIN 5,000 UNITS/ML, 1ML SQ SCH ×3 (01:29→18:54)
[2018-07-13] MEDS: ALBUTEROL/IPRATROPIUM 2.5MG/0.5MG, 3 ML INLINE SCH ×3 (03:00→11:00)
[2018-07-13] MEDS: CEFTAROLINE 600 MG in SODIUM CHLORIDE 0.9% 100 ML IV SCH ×2 (03:48→17:07)
[2018-07-13 04:37] LABS: CHLORIDE 100 mmol/L (98-107)
[2018-07-13 04:39] LABS: BASOPHILS # (AUTO) 0.01 x10^3/uL (0-0.1); BASOPHILS % (AUTO) 0 % (0-1); EOSINOPHILS # (AUTO) 0.04 x10^3/uL (0-0.4); EOSINOPHILS % (AUTO) 1 % (1-7); LYMPHOCYTES # (AUTO) 1.08 x10^3/uL (1-3.4); LYMPHOCYTES % (AUTO) 14 % (22-44); MD NO; MEAN CORPUSCULAR HEMOGLOBIN 33.5 pg (27.5-34.5); MEAN CORPUSCULAR HGB CONC 33.5 g/dL (33.2-36.2); MEAN CORPUSCULAR VOLUME 99.9 fL (81-97); MEAN PLATELET VOLUME 10.1 fL (7.4-10.4); MONOCYTES # (AUTO) 0.29 x10^3/uL (0.2-0.8); MONOCYTES % (AUTO) 4 % (2-9); NEUTROPHILS # (AUTO) 6.39 x10^3/uL (1.8-6.8); NEUTROPHILS % (AUTO) 82 % (42-75); PLATELET COUNT 201 x10^3/uL (130-400); RED BLOOD COUNT 2.95 x10^6/uL (4.38-5.82); RED CELL DISTRIBUTION WIDTH 19.1 % (9.4-14.8)
[2018-07-13 04:42] LABS: ANION GAP 4 mmol/L (5-15); CALCIUM 7.9 mg/dL (8.5-10.1); TRIGLYCERIDES 124 mg/dL (50-200)
[2018-07-13] MEDS: SODIUM CHLORIDE FLUSH 10ML SYR IVF SCH ×2 (11:51→19:57)
[2018-07-13] MEDS ORDERED: FUROSEMIDE 40 MG/4 ML IV ONE (12:00)
[2018-07-13] MEDS ORDERED: ALBUTEROL SULFATE 2.5 MG/3 ML NPPB PRN (15:30)
[2018-07-13] MEDS ORDERED: ALBUTEROL/IPRATROPIUM 2.5MG/0.5MG, 3 ML NPPB SCH (20:00)
[2018-07-14] MEDS: HEPARIN 5,000 UNITS/ML, 1ML SQ SCH ×3 (01:47→18:09)
[2018-07-14] MEDS: CEFTAROLINE 600 MG in SODIUM CHLORIDE 0.9% 100 ML IV SCH ×2 (03:45→18:09)
[2018-07-14 04:19] LABS: BASOPHILS # (AUTO) 0.03 x10^3/uL (0-0.1); BASOPHILS % (AUTO) 0 % (0-1); EOSINOPHILS # (AUTO) 0.13 x10^3/uL (0-0.4); EOSINOPHILS % (AUTO) 2 % (1-7); LYMPHOCYTES # (AUTO) 1.31 x10^3/uL (1-3.4); LYMPHOCYTES % (AUTO) 17 % (22-44); MD NO; MEAN CORPUSCULAR HEMOGLOBIN 34.5 pg (27.5-34.5); MEAN CORPUSCULAR HGB CONC 34.3 g/dL (33.2-36.2); MEAN CORPUSCULAR VOLUME 100.5 fL (81-97); MEAN PLATELET VOLUME 10.1 fL (7.4-10.4); MONOCYTES # (AUTO) 0.36 x10^3/uL (0.2-0.8); MONOCYTES % (AUTO) 5 % (2-9); NEUTROPHILS # (AUTO) 5.96 x10^3/uL (1.8-6.8); NEUTROPHILS % (AUTO) 77 % (42-75); PLATELET COUNT 214 x10^3/uL (130-400); RED BLOOD COUNT 2.89 x10^6/uL (4.38-5.82); RED CELL DISTRIBUTION WIDTH 18.9 % (9.4-14.8)
[2018-07-14 04:29] LABS: ANION GAP 2 mmol/L (5-15); CALCIUM 7.7 mg/dL (8.5-10.1); CHLORIDE 100 mmol/L (98-107); CREATININE 0.45 mg/dL (0.7-1.3)
[2018-07-14] MEDS ORDERED: FUROSEMIDE 40 MG/4 ML IV ONE (07:00)
[2018-07-14] MEDS: FOLIC ACID 1 MG TABLET NG SCH (08:11)
[2018-07-14] MEDS: SODIUM CHLORIDE FLUSH 10ML SYR IVF SCH ×2 (08:11→20:59)
[2018-07-14] MEDS: MULTIVIT.W/IRON, MINERALS ORAL SOL PO SCH (08:12)
[2018-07-14] MEDS ORDERED: THIAMINE 200 MG in SODIUM CHLORIDE 0.9% 50 ML IV SCH (09:00)
[2018-07-14] MEDS: THIAMINE 100MG TABLET PO SCH (09:15)
[2018-07-14] MEDS ORDERED: ALBUTEROL/IPRATROPIUM 2.5MG/0.5MG, 3 ML NPPB PRN (11:00)
[2018-07-14 14:36] VITALS: BP 107/69
[2018-07-14 20:43] VITALS: BP 107/69
[2018-07-15 00:45] VITALS: BP 96/62
[2018-07-15] MEDS: HEPARIN 5,000 UNITS/ML, 1ML SQ SCH ×3 (02:26→18:08)
[2018-07-15] MEDS: CEFTAROLINE 600 MG in SODIUM CHLORIDE 0.9% 100 ML IV SCH ×2 (04:14→16:37)
[2018-07-15 04:43] LABS: BASOPHILS # (AUTO) 0.01 x10^3/uL (0-0.1); BASOPHILS % (AUTO) 0 % (0-1); EOSINOPHILS # (AUTO) 0.03 x10^3/uL (0-0.4); EOSINOPHILS % (AUTO) 1 % (1-7); LYMPHOCYTES # (AUTO) 1.25 x10^3/uL (1-3.4); LYMPHOCYTES % (AUTO) 17 % (22-44); MD NO; MEAN CORPUSCULAR HEMOGLOBIN 33.7 pg (27.5-34.5); MEAN CORPUSCULAR HGB CONC 33.6 g/dL (33.2-36.2); MEAN CORPUSCULAR VOLUME 100.2 fL (81-97); MEAN PLATELET VOLUME 9.6 fL (7.4-10.4); MONOCYTES # (AUTO) 0.39 x10^3/uL (0.2-0.8); MONOCYTES % (AUTO) 5 % (2-9); NEUTROPHILS # (AUTO) 5.59 x10^3/uL (1.8-6.8); NEUTROPHILS % (AUTO) 77 % (42-75); PLATELET COUNT 304 x10^3/uL (130-400); RED BLOOD COUNT 3.04 x10^6/uL (4.38-5.82); RED CELL DISTRIBUTION WIDTH 19.2 % (9.4-14.8)
[2018-07-15 05:07] LABS: ALBUMIN 1.9 g/dL (3.4-5.0); ANION GAP 2 mmol/L (5-15); CALCIUM 8.2 mg/dL (8.5-10.1); CHLORIDE 99 mmol/L (98-107)
[2018-07-15 05:12] LABS: ALANINE AMINOTRANSFERASE 32 U/L (12-78); ALKALINE PHOSPHATASE 112 U/L (45-117); BILIRUBIN,TOTAL 0.7 mg/dL (0.2-1.0); CREATININE 0.47 mg/dL (0.7-1.3)
[2018-07-15 08:00] VITALS: BP 101/64
[2018-07-15] MEDS: FOLIC ACID 1 MG TABLET NG SCH (08:28)
[2018-07-15] MEDS: MULTIVIT.W/IRON, MINERALS ORAL SOL PO SCH (08:28)
[2018-07-15] MEDS: ERGOCALCIFEROL 50,000 UNIT CAPSULE PO SCH (08:28)
[2018-07-15] MEDS: THIAMINE 100MG TABLET PO SCH (08:28)
[2018-07-15] MEDS: SODIUM CHLORIDE FLUSH 10ML SYR IVF SCH ×2 (08:37→21:00)
[2018-07-15] MEDS ORDERED: FUROSEMIDE 40 MG/4 ML IV ONE (11:30)
[2018-07-15 12:05] VITALS: BP 103/69
[2018-07-15] MEDS: FUROSEMIDE 40 MG/4 ML IV SCH (16:36)
[2018-07-15 19:04] VITALS: BP 93/60
[2018-07-16] MEDS: HEPARIN 5,000 UNITS/ML, 1ML SQ SCH ×3 (02:51→20:18)
[2018-07-16] MEDS: CEFTAROLINE 600 MG in SODIUM CHLORIDE 0.9% 100 ML IV SCH ×2 (05:07→16:59)
[2018-07-16 06:52] VITALS: BP 92/57
[2018-07-16] MEDS: SODIUM CHLORIDE FLUSH 10ML SYR IVF SCH ×2 (09:00→21:00)
[2018-07-16] MEDS: THIAMINE 100MG TABLET PO SCH (09:08)
[2018-07-16] MEDS: FOLIC ACID 1 MG TABLET NG SCH (09:08)
[2018-07-16] MEDS: FUROSEMIDE 40 MG/4 ML IV SCH ×2 (09:09→16:58)
[2018-07-16] MEDS: MULTIVIT.W/IRON, MINERALS ORAL SOL PO SCH (09:09)
[2018-07-16 15:00] VITALS: BP 95/56
--- NOTE | 2018-07-16 15:09 | NUR ---
ASSOCIATE DIRECTOR QA Recommend: CHOPPED/ NTL up at 90 no straws float meds Addendum: 07/16/18 at [address] Amended: Links added.
[2018-07-16 19:39] VITALS: BP 101/62
[2018-07-17 03:26] VITALS: BP 106/82
[2018-07-17] MEDS: CEFTAROLINE 600 MG in SODIUM CHLORIDE 0.9% 100 ML IV SCH ×2 (04:34→17:15)
[2018-07-17] MEDS: HEPARIN 5,000 UNITS/ML, 1ML SQ SCH ×3 (04:34→20:22)
[2018-07-17 09:08] VITALS: BP 108/78
[2018-07-17] MEDS: FUROSEMIDE 40 MG/4 ML IV SCH (10:22)
[2018-07-17] MEDS: MULTIVIT.W/IRON, MINERALS ORAL SOL PO SCH (10:23)
[2018-07-17] MEDS: SODIUM CHLORIDE FLUSH 10ML SYR IVF SCH ×2 (10:23→20:22)
[2018-07-17] MEDS: THIAMINE 100MG TABLET PO SCH (10:23)
[2018-07-17] MEDS: FOLIC ACID 1 MG TABLET NG SCH (10:23)
[2018-07-17 14:24] VITALS: BP 101/59
[2018-07-17 19:52] VITALS: BP 93/59
[2018-07-18 01:10] VITALS: BP 88/55
[2018-07-18] MEDS: HEPARIN 5,000 UNITS/ML, 1ML SQ SCH ×3 (05:52→21:32)
[2018-07-18 07:00] LABS: ALANINE AMINOTRANSFERASE 43 U/L (12-78); ALBUMIN 2.2 g/dL (3.4-5.0); ANION GAP 5 mmol/L (5-15); CALCIUM 8.9 mg/dL (8.5-10.1); CHLORIDE 96 mmol/L (98-107)
[2018-07-18 07:03] LABS: ALKALINE PHOSPHATASE 114 U/L (45-117); BASOPHILS # (AUTO) 0.01 x10^3/uL (0-0.1); BASOPHILS % (AUTO) 0 % (0-1); BILIRUBIN,TOTAL 0.5 mg/dL (0.2-1.0); CREATININE 0.67 mg/dL (0.7-1.3); EOSINOPHILS % (AUTO) 0 % (1-7); LYMPHOCYTES # (AUTO) 1.41 x10^3/uL (1-3.4); LYMPHOCYTES % (AUTO) 24 % (22-44); MD NO; MEAN CORPUSCULAR HGB CONC 33.7 g/dL (33.2-36.2); MEAN CORPUSCULAR VOLUME 100.9 fL (81-97); MEAN PLATELET VOLUME 9.2 fL (7.4-10.4); MONOCYTES # (AUTO) 0.29 x10^3/uL (0.2-0.8); MONOCYTES % (AUTO) 5 % (2-9); NEUTROPHILS # (AUTO) 4.25 x10^3/uL (1.8-6.8); NEUTROPHILS % (AUTO) 71 % (42-75); PLATELET COUNT 456 x10^3/uL (130-400); RED BLOOD COUNT 3.47 x10^6/uL (4.38-5.82); RED CELL DISTRIBUTION WIDTH 18.4 % (9.4-14.8); TOTAL PROTEIN 8.1 g/dL (6.4-8.2)
[2018-07-18 07:58] VITALS: BP 95/55
[2018-07-18] MEDS ORDERED: POTASSIUM CHLORIDE 20 MEQ TAB.ER.PRT PO ONE (09:30)
[2018-07-18] MEDS: CEFTAROLINE 600 MG in SODIUM CHLORIDE 0.9% 100 ML IV SCH ×2 (09:39→21:32)
[2018-07-18] MEDS: FOLIC ACID 1 MG TABLET NG SCH (09:40)
[2018-07-18] MEDS: MULTIVIT.W/IRON, MINERALS ORAL SOL PO SCH (09:40)
[2018-07-18] MEDS: THIAMINE 100MG TABLET PO SCH (09:40)
[2018-07-18] MEDS: SODIUM CHLORIDE FLUSH 10ML SYR IVF SCH ×2 (09:41→21:33)
[2018-07-18 12:54] VITALS: BP 91/60
[2018-07-18 20:08] VITALS: BP 96/64
[2018-07-19 02:23] VITALS: BP 104/68
[2018-07-19] MEDS: HEPARIN 5,000 UNITS/ML, 1ML SQ SCH ×3 (05:45→20:35)
[2018-07-19] MEDS: FOLIC ACID 1 MG TABLET NG SCH (08:10)
[2018-07-19] MEDS: THIAMINE 100MG TABLET PO SCH (08:10)
[2018-07-19] MEDS: SODIUM CHLORIDE FLUSH 10ML SYR IVF SCH ×2 (08:10→20:35)
[2018-07-19 08:12] VITALS: BP 99/64
[2018-07-19] MEDS: MULTIVIT.W/IRON, MINERALS ORAL SOL PO SCH (09:21)
[2018-07-19] MEDS: CEFTAROLINE 600 MG in SODIUM CHLORIDE 0.9% 100 ML IV SCH ×2 (09:21→20:34)
[2018-07-19 13:18] VITALS: BP 99/68
[2018-07-19 19:50] VITALS: BP 92/51
[2018-07-19] MEDS: NICOTINE 21 MG/24 HR PATCH.TD24 TD SCH (21:20)
[2018-07-20 01:15] VITALS: BP 97/65
[2018-07-20] MEDS: HEPARIN 5,000 UNITS/ML, 1ML SQ SCH ×3 (05:32→21:14)
[2018-07-20 06:31] LABS: ALBUMIN 2.1 g/dL (3.4-5.0); ANION GAP 4 mmol/L (5-15); CALCIUM 8.7 mg/dL (8.5-10.1); CHLORIDE 102 mmol/L (98-107); CREATININE 0.52 mg/dL (0.7-1.3)
[2018-07-20 07:00] LABS: BASOPHILS # (AUTO) 0.01 x10^3/uL (0-0.1); BASOPHILS % (AUTO) 0 % (0-1); EOSINOPHILS % (AUTO) 0 % (1-7); LYMPHOCYTES # (AUTO) 1.48 x10^3/uL (1-3.4); LYMPHOCYTES % (AUTO) 26 % (22-44); MD NO; MEAN CORPUSCULAR HEMOGLOBIN 33.8 pg (27.5-34.5); MEAN CORPUSCULAR HGB CONC 33.6 g/dL (33.2-36.2); MEAN CORPUSCULAR VOLUME 100.5 fL (81-97); MONOCYTES # (AUTO) 0.34 x10^3/uL (0.2-0.8); MONOCYTES % (AUTO) 6 % (2-9); NEUTROPHILS # (AUTO) 3.86 x10^3/uL (1.8-6.8); NEUTROPHILS % (AUTO) 68 % (42-75); PLATELET COUNT 441 x10^3/uL (130-400); RED BLOOD COUNT 3.09 x10^6/uL (4.38-5.82); RED CELL DISTRIBUTION WIDTH 17.7 % (9.4-14.8)
[2018-07-20 07:33] VITALS: BP 93/58
[2018-07-20] MEDS: SODIUM CHLORIDE FLUSH 10ML SYR IVF SCH ×2 (09:00→21:16)
[2018-07-20] MEDS ORDERED: MULTIVITAMINS WITH IRON TABLET PO ONE (09:26)
[2018-07-20] MEDS: CEFTAROLINE 600 MG in SODIUM CHLORIDE 0.9% 100 ML IV SCH ×2 (09:31→21:14)
[2018-07-20] MEDS: FOLIC ACID 1 MG TABLET NG SCH (09:32)
[2018-07-20] MEDS: THIAMINE 100MG TABLET PO SCH (09:32)
[2018-07-20] MEDS: MULTIVITAMINS WITH IRON TABLET PO SCH (10:13)
[2018-07-20 14:04] VITALS: BP 100/62
[2018-07-20] MEDS: NICOTINE 21 MG/24 HR PATCH.TD24 TD SCH (21:15)
[2018-07-21 02:48] VITALS: BP 99/52
[2018-07-21] MEDS: HEPARIN 5,000 UNITS/ML, 1ML SQ SCH ×3 (06:17→21:28)
[2018-07-21] MEDS: CEFTAROLINE 600 MG in SODIUM CHLORIDE 0.9% 100 ML IV SCH ×2 (09:03→21:27)
[2018-07-21] MEDS: MULTIVITAMINS WITH IRON TABLET PO SCH (09:04)
[2018-07-21] MEDS: THIAMINE 100MG TABLET PO SCH (09:04)
[2018-07-21] MEDS: SODIUM CHLORIDE FLUSH 10ML SYR IVF SCH ×2 (09:04→21:28)
[2018-07-21] MEDS: FOLIC ACID 1 MG TABLET NG SCH (09:04)
[2018-07-21 09:10] VITALS: BP 91/54
[2018-07-21 13:54] VITALS: BP 98/57
[2018-07-21 19:54] VITALS: BP 97/66
[2018-07-21] MEDS: NICOTINE 21 MG/24 HR PATCH.TD24 TD SCH (21:29)
[2018-07-22 01:26] VITALS: BP 98/61
[2018-07-22] MEDS: HEPARIN 5,000 UNITS/ML, 1ML SQ SCH ×3 (06:16→22:08)
[2018-07-22 08:13] VITALS: BP 86/56
[2018-07-22] MEDS: THIAMINE 100MG TABLET PO SCH (08:47)
[2018-07-22] MEDS: ERGOCALCIFEROL 50,000 UNIT CAPSULE PO SCH (08:47)
[2018-07-22] MEDS: MULTIVITAMINS WITH IRON TABLET PO SCH (08:47)
[2018-07-22] MEDS: FOLIC ACID 1 MG TABLET NG SCH (08:47)
[2018-07-22] MEDS: SODIUM CHLORIDE FLUSH 10ML SYR IVF SCH ×2 (08:48→22:07)
[2018-07-22] MEDS: CEFTAROLINE 600 MG in SODIUM CHLORIDE 0.9% 100 ML IV SCH ×2 (08:48→22:52)
[2018-07-22 14:07] VITALS: BP 99/62
[2018-07-22 20:10] VITALS: BP 95/58
[2018-07-22] MEDS: NICOTINE 21 MG/24 HR PATCH.TD24 TD SCH (22:06)
[2018-07-23 01:50] VITALS: BP 91/55
[2018-07-23] MEDS: HEPARIN 5,000 UNITS/ML, 1ML SQ SCH ×2 (06:28→13:09)
[2018-07-23 07:41] VITALS: BP 93/55
[2018-07-23] MEDS: MULTIVITAMINS WITH IRON TABLET PO SCH (09:01)
[2018-07-23] MEDS: FOLIC ACID 1 MG TABLET NG SCH (09:01)
[2018-07-23] MEDS: THIAMINE 100MG TABLET PO SCH (09:01)
[2018-07-23] MEDS: SODIUM CHLORIDE FLUSH 10ML SYR IVF SCH (09:02)
[2018-07-23] MEDS: CEFTAROLINE 600 MG in SODIUM CHLORIDE 0.9% 100 ML IV SCH (11:05)
[2018-07-23] MEDS ORDERED: ERGO500017 PO (11:39)
[2018-07-23] MEDS ORDERED: CEFT600V IV (11:39)
[2018-07-23] MEDS ORDERED: FOLI-17 NG (11:39)
[2018-07-23] MEDS ORDERED: THIA100T67 PO (11:39)
== END 2018-07-23 15:08 | DRG 870 ==
LOC: ED 12:29 → EDIP 12:30 → ED 12:42 → 5SO 16:25 → CCU 19:01 → 4WST 07-14 13:39
PROVIDERS: ADMIT Hospitalist; ATTEND Hospitalist
PROC: 5A1955Z Respiratory Ventilation, Greater than 96 Consecutive Hours (ICD-10-PCS; principal; 2018-07-07)
PROC: 0BH17EZ Insertion of Endotracheal Airway into Trachea, Via Natural or Artificial Opening (ICD-10-PCS; 2018-07-07)
PROC: 02HV33Z Insertion of Infusion Device into Superior Vena Cava, Percutaneous Approach (ICD-10-PCS; 2018-07-08)
PROC: B548ZZA Ultrasonography of Superior Vena Cava, Guidance (ICD-10-PCS; 2018-07-08)
DX: A40.3 Sepsis due to Streptococcus pneumoniae (principal); J96.01 Acute respiratory failure with hypoxia; G93.41 Metabolic encephalopathy; E43 Unspecified severe protein-calorie malnutrition; I50.43 Acute on chronic combined systolic (congestive) and diastolic (congestive) heart failure; J13 Pneumonia due to Streptococcus pneumoniae; J15.212 Pneumonia due to Methicillin resistant Staphylococcus aureus; D61.9 Aplastic anemia, unspecified; Z99.11 Dependence on respirator [ventilator] status; F10.231 Alcohol dependence with withdrawal delirium; D68.69 Other thrombophilia; E87.1 Hypo-osmolality and hyponatremia; M62.82 Rhabdomyolysis; N25.81 Secondary hyperparathyroidism of renal origin; R18.8 Other ascites; B85.0 Pediculosis due to Pediculus humanus capitis; D53.9 Nutritional anemia, unspecified; D69.59 Other secondary thrombocytopenia; D72.819 Decreased white blood cell count, unspecified; D75.89 Other specified diseases of blood and blood-forming organs; Z68.25 Body mass index [BMI] 25.0-25.9, adult; E83.51 Hypocalcemia; E86.0 Dehydration; E87.6 Hypokalemia; F17.210 Nicotine dependence, cigarettes, uncomplicated; G40.901 Epilepsy, unspecified, not intractable, with status epilepticus; I07.1 Rheumatic tricuspid insufficiency; I48.2 Chronic atrial fibrillation; K74.60 Unspecified cirrhosis of liver; K80.20 Calculus of gallbladder without cholecystitis without obstruction; L98.9 Disorder of the skin and subcutaneous tissue, unspecified; R13.10 Dysphagia, unspecified; Z59.0 Homelessness; Z91.19 Patient's noncompliance with other medical treatment and regimen; Z91.81 History of falling
CPT/HCPCS: 31500; 36415; 36600; 70450; 71045; 71260; 74177; 80048; 80053; 80061; 80074; 80076; 80307; 80329; 81001; 82040; 82140; 82306; 82330; 82533; 82550; 82607; 82746; 82784; 82787; 82803; 82962; 83036; 83605; 83615; 83735; 83880; 83970; 84100; 84145; 84439; 84443; 84478; 84484; 85025; 85610; 85730; 87040; 87070; 87077; 87081; 87147; 87181; 87184; 87186; 87205; 87400; 87806; 93005; 93306; 94002; 94003; 94150; 94640; 94667; 94668; 95816; 99291; G0378; J0295; J0456; J0696; J0712; J1335; J1644; J1650; J1940; J2560; J2704; J3010; J3360; J3370; J3411; J3475; J3480; J7613; J7620; P9045; P9047; Q9967; G0009; G0475; G0480; J0330; J1160; J2060; J7030; J7040; J7050

== ENCOUNTER 2018-08-17 07:51 | Emergency (ER) | payer SELFPAY ==
[~2018-08-17 07:51] MED LIST changes: +CEFT600V IV; +ERGO500017 PO; -ETOMIDATE 20 MG/10 ML ONE; +FOLI-17 NG; -PROPOFOL 10 MG/ML, 100ML IV ONE; -SUCCINYLCHOLINE 20 MG/ML, 10ML ONE; +THIA100T67 PO
[2018-08-17 09:19] LABS: BASOPHILS # (AUTO) 0.01 x10^3/uL (0-0.1); BASOPHILS % (AUTO) 0 % (0-1); EOSINOPHILS # (AUTO) 0.21 x10^3/uL (0-0.4); EOSINOPHILS % (AUTO) 5 % (1-7); LYMPHOCYTES # (AUTO) 2.24 x10^3/uL (1-3.4); LYMPHOCYTES % (AUTO) 54 % (22-44); MD NO; MEAN CORPUSCULAR HEMOGLOBIN 33.9 pg (27.5-34.5); MEAN CORPUSCULAR HGB CONC 33.1 g/dL (33.2-36.2); MEAN CORPUSCULAR VOLUME 102.6 fL (81-97); MEAN PLATELET VOLUME 7.8 fL (7.4-10.4); MONOCYTES # (AUTO) 0.22 x10^3/uL (0.2-0.8); MONOCYTES % (AUTO) 5 % (2-9); NEUTROPHILS # (AUTO) 1.44 x10^3/uL (1.8-6.8); NEUTROPHILS % (AUTO) 35 % (42-75); PLATELET COUNT 218 x10^3/uL (130-400); RED BLOOD COUNT 4.42 x10^6/uL (4.38-5.82); RED CELL DISTRIBUTION WIDTH 15.6 % (9.4-14.8)
[2018-08-17 09:30] LABS: INTERNATIONAL NORMALIZED RATIO 0.98 (0.93-1.1); PROTHROMBIN TIME 10.3 Seconds (9.6-11.5)
--- NOTE | 2018-08-17 09:38 | NUR ---
Pt remains in bed. NAD. VSS
[2018-08-17 10:47] LABS: CALCIUM 8.9 mg/dL (8.5-10.1)
[2018-08-17 11:13] LABS: ALANINE AMINOTRANSFERASE 33 U/L (12-78); ALBUMIN 3.4 g/dL (3.4-5.0); ALKALINE PHOSPHATASE 102 U/L (45-117); ANION GAP 13 mmol/L (5-15); BILIRUBIN,TOTAL 0.4 mg/dL (0.2-1.0); CHLORIDE 108 mmol/L (98-107); CREATININE 0.64 mg/dL (0.7-1.3); TOTAL PROTEIN 9.1 g/dL (6.4-8.2)
[2018-08-17 11:31] VITALS: BP 99/59
== END 2018-08-17 12:22 | disposition home or self-care (01) ==
LOC: ED 09:08
DX: F10.220 Alcohol dependence with intoxication, uncomplicated (principal); I50.9 Heart failure, unspecified; I48.91 Unspecified atrial fibrillation
CPT/HCPCS: 36415; 80053; 85025; 85610; 99283

== ENCOUNTER 2018-08-17 19:49 | Emergency (ER) | payer SELFPAY ==
[~2018-08-17] VITALS: Ht 175.3 cm; Wt 80.0 kg
--- NOTE | 2018-08-17 20:03 | NUR ---
PT GEE, REPORT RECEIVED FROM EMS. PER EMS, PT WAS NONAMBULATORY ON SCENE, +ETOH, SI WITH NO PLAN. STATES "I DON'T WANT TO LIVE NO MORE". PT ATTACHED TO BP AND SPO2 MONITORS. PT'S BELONGINGS TAKEN, BAGGED, LABELED AND PLACED IN LOCKED CABINET. AWAITING MD ASSESSMENT AT THIS TIME.
--- NOTE | 2018-08-17 20:30 | NUR ---
ROSETTA CARRIZALES AT BEDSIDE. PT STATES TO MD THAT HE HAS HAD SUICIDAL THOUGHTS FOR LAST TWO YEARS AND HAS NO INTENT OR PLAN TO HURT SELF. NO ORDERS RECEIVED AT THIS TIME.
--- NOTE | 2018-08-17 21:45 | NUR ---
PT SLEEPING, RESPS EVEN AND UNLABORED. BED LOCKED AND IN LOWEST POSITION, CALL LIGHT IN REACH.
[2018-08-17 22:39] VITALS: BP 101/56
--- NOTE | 2018-08-17 22:39 | NUR ---
PT AWAKENS TO VOICE. PT A&OX4 UPON AWAKENING, HOWEVER WHEN THIS RN ATTEMPTED TO AMBULATE PT PER MD INSTRUCTIONS, PT WAS UNABLE TO STAND. NEURO INTACT. POC TO MONITOR AND REASSESS SOBRIETY.
--- NOTE | 2018-08-17 22:50 | NUR ---
EDMD VanBibber notified pt is non-ambulatory at this time. bp and spo2 monitors in place. call light in reach. bed locked and in lowest position. pt educated regarding call light use, educated not to get out of bed without staff assist. pt verbalizes understanding.
--- NOTE | 2018-08-17 23:52 | NUR ---
pt awakens to voice, now a&ox4 and ambulatory with steady gait. speech is clear. pt denies SI. EDMD VanBibber notified. EDMD notified bp 92/45 with HR 84 at this time. Orders received from EDKY VanBibber to discharge pt. pt given cab voucher to homeless [facility]-term on [facility] at pt request. all belongings and clothes returned to pt. pt given dc instructions. pt amb to dc desk with steady gait. nadn at dc.
== END 2018-08-18 00:03 | disposition home or self-care (01) ==
LOC: ED 20:33
DX: F10.221 Alcohol dependence with intoxication delirium (principal); Z72.9 Problem related to lifestyle, unspecified; F17.200 Nicotine dependence, unspecified, uncomplicated; I50.9 Heart failure, unspecified; I48.91 Unspecified atrial fibrillation
CPT/HCPCS: 99283

== ENCOUNTER 2018-08-18 11:18 | Emergency (ER) | payer SELFPAY ==
[~2018-08-18] VITALS: Ht 175.3 cm; Wt 78.0 kg
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
--- NOTE | 2018-08-18 11:38 | NUR ---
PT WITH RA SATS 88% PLACED ON 2L NC, SATS INC TO 94%
--- NOTE | 2018-08-18 12:33 | NUR ---
PT TO CT
--- NOTE | 2018-08-18 13:02 | NUR ---
PT RETURN TO ROOM, MOSTLY SLEEPING, AROUSES TO NAME, AWAITING TEST RESULTS.
--- NOTE | 2018-08-18 13:39 | NUR ---
BREAK RN - PT RESTING ON GURNEY WITH EYES CLOSED. AROUSABLE TO VOICE. SIDERAILS UP X 2. SPO2 AND NIBP MONITORING IN PLACE. NADN. RESP EVEN AND UNLABORED. PT PROVIDED WITH JUICE AND CRACKERS.
--- NOTE | 2018-08-18 13:49 | NUR ---
PRIMARY RN: RESUMED CARE OF PT
--- NOTE | 2018-08-18 14:44 | NUR ---
PT MOSTLY SLEEPING, AROUSES TO NAME, ATTEMPT TO AMB PT, PT UNSTEADY ON FEET. PT RETURNED TO [facility]. CRACKERS AND FLUIDS AT BEDSIDE.
--- NOTE | 2018-08-18 17:20 | NUR ---
PT AROUSES TO NAME, PT ABLE TO AMB WITH STEADY GAIT. NO IV TO DC. REVIEWED DC INSTRUCTIONS WITH PT, UNDERSTANDING VERBALIZED. PT LEFT AMB.
[2018-08-18 17:21] VITALS: BP 91/54
== END 2018-08-18 17:23 | disposition home or self-care (01) ==
LOC: ED 12:02
DX: S00.81XA Abrasion of other part of head, initial encounter (principal); F10.220 Alcohol dependence with intoxication, uncomplicated; I11.0 Hypertensive heart disease with heart failure; I50.9 Heart failure, unspecified; F17.200 Nicotine dependence, unspecified, uncomplicated; I48.91 Unspecified atrial fibrillation; W19.XXXA Unspecified fall, initial encounter; Y93.89 Activity, other specified; Y92.89 Other specified places as the place of occurrence of the external cause; Y99.8 Other external cause status
CPT/HCPCS: 70450; 82962; 99284

== ENCOUNTER 2018-08-25 02:46 | Emergency (ER) | payer SELFPAY ==
[~2018-08-25] VITALS: Ht 172.7 cm; Wt 78.0 kg
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
[2018-08-25 03:20] VITALS: BP 102/59
--- NOTE | 2018-08-25 03:23 | NUR ---
PT RESTING ON GURNEY, MONITORS IN PLACE, CALL LIGHT WITHIN REACH. PRVIDED PT WITH SNACK AND JUICE
--- NOTE | 2018-08-25 04:04 | NUR ---
PT CALLING OUT, ON ASSESSMENT PT STATED " I'M READY TO GET OUT OF HERE, PT STATED I CAN WALK FINE".
--- NOTE | 2018-08-25 04:16 | NUR ---
PT AMBULATED WITHOUT DIFFICULTY IN ROOM AND REQUESTING TO LEAVE. INFORMED PT THAT I WILL DISCUSS HIS STATUS WITH ERP
== END 2018-08-25 04:19 | disposition left against medical advice (07) ==
LOC: ED 03:36
DX: F10.120 Alcohol abuse with intoxication, uncomplicated (principal); F17.200 Nicotine dependence, unspecified, uncomplicated; I50.9 Heart failure, unspecified; I48.91 Unspecified atrial fibrillation; I11.0 Hypertensive heart disease with heart failure; G40.909 Epilepsy, unspecified, not intractable, without status epilepticus
CPT/HCPCS: 99283

== ENCOUNTER 2018-10-03 21:55 | Emergency (ER) | payer MEDICARE ==
[~2018-10-03] VITALS: Ht 175.3 cm; Wt 85.4 kg
--- NOTE | 2018-10-03 22:23 | NUR ---
PT RESTING CALMLY IN BED AT THIS TIME WITH EYES CLOSED. WILL CONTINUE TO MONITOR.
--- NOTE | 2018-10-03 23:10 | NUR ---
PT RESTING IN BED WITH EYES CLOSED. RESP EVEN AND NON LABORED.
--- NOTE | 2018-10-04 00:02 | NUR ---
PT RESTING CALMLY IN BED. NO NEEDS AT THIS TIME. PT VSS.
--- NOTE | 2018-10-04 01:15 | NUR ---
PT CONTINUES TO REST IN BED. NO STATED NEEDS AT THIS TIME. BILAT BEDRAILS UP.
--- NOTE | 2018-10-04 02:16 | NUR ---
GOT PT UP TO ATTEMPT TO AMBULATE HM TO BATHROOM. PT REQUIRES ONE PERSON ASSIST TO AMBULATE HE WAS LEANING ON ROBERTS TO HOLD HIMSELF UP. PT VOIDED LARGE AMOUNT OF URINE IN BATHROOM. PT BACK IN [facility], RECONNECTED TO VITALS MONITORS. WILL CONTINUE TO MONITOR.
[2018-10-04 02:32] VITALS: BP 102/67
--- NOTE | 2018-10-04 02:33 | NUR ---
pt ambulatory with steady gait. pt requesting to leave. pt denies medical complaints. informed. pt kindly refused multiple offers for a taxi voucher.
== END 2018-10-04 02:34 | disposition home or self-care (01) ==
LOC: ED 22:19
DX: F10.220 Alcohol dependence with intoxication, uncomplicated (principal); I50.9 Heart failure, unspecified; I11.0 Hypertensive heart disease with heart failure
CPT/HCPCS: 99283

== ENCOUNTER 2019-03-21 17:11 | Emergency (ER) | payer SELFPAY ==
[~2019-03-21] VITALS: Ht 177.8 cm; Wt 83.0 kg
[2019-03-21 17:23] VITALS: BP 110/70
== END 2019-03-21 20:33 | disposition home or self-care (01) ==
LOC: ED 20:27
DX: F10.10 Alcohol abuse, uncomplicated (principal); I10 Essential (primary) hypertension; Y90.0 Blood alcohol level of less than 20 mg/100 ml
CPT/HCPCS: 99283

== ENCOUNTER 2019-03-30 18:08 | Emergency (ER) | payer OTHER ==
--- NOTE | 2019-03-30 18:22 | NUR ---
THIS IS A 63 YO M BIB [facility] FROM [facility]SIDE THE [facility]. [facility] REPORTS ETOH. PATIENT UNCOOPERATIVE AND REFUSING VS ASSESSMENT. PATIENT MILDLY COMBATIVE. RESPIRATIONS ARE EVEN AND UNLABORED. PATIENT IS IN NO ACUTE DISTRESS. RESTING ON GURNEY AWAITING EVAL BY PROVIDER.
--- NOTE | 2019-03-30 19:07 | NUR ---
Report recieved from TIFFANIE Feliciano Pt resting on [facility]. Positive chest rise and fall noted.
--- NOTE | 2019-03-30 19:21 | NUR ---
PT AMBULATING IN ROOM DEMANDING FOOD. POC DISCUSSED. PT WAS INFORMED WE CURRENTLY HAVE NO FOOD THE COFFEE CART IS CLOSED. PT ARGUMENTATIVE. PT STATES "WELL THEM I'M STAYING ALL NIGHT". PT WAS INFORMED THIS IS NOT POSSIBLE. PT WAS OFFERED A TAXI VOUCHER MULTIPLE TIMES WHICH HE REFUSED. PT CURSING. PT ESCORTED OUT BY SECURITY. PT AMBULATES WITH STEADY GAIT.
== END 2019-03-30 19:26 | disposition home or self-care (01) ==
LOC: ED 18:16
DX: F10.120 Alcohol abuse with intoxication, uncomplicated (principal); I48.91 Unspecified atrial fibrillation; I50.9 Heart failure, unspecified; Y90.0 Blood alcohol level of less than 20 mg/100 ml
CPT/HCPCS: 99283

== ENCOUNTER 2019-06-20 10:12 | Emergency (ER) | payer SELFPAY ==
[~2019-06-20] VITALS: Ht 172.7 cm; Wt 82.0 kg
[2019-06-20] MEDS ORDERED: FAMOTIDINE 20 MG TABLET ONE (10:28)
[2019-06-20] MEDS ORDERED: DIPHENHYDRAMINE 25 MG CAPSULE ONE (10:28)
[2019-06-20] MEDS ORDERED: FAMOTIDINE 20 MG TABLET PO ONE (10:30)
[2019-06-20] MEDS ORDERED: DIPHENHYDRAMINE 25 MG CAPSULE PO ONE (10:30)
--- NOTE | 2019-06-20 10:34 | NUR ---
PT MEDICATED PER EMAR.
--- NOTE | 2019-06-20 11:01 | NUR ---
RN ATTEMPTED TO OBTAIN PIV ACCESS. WAS UNSUCCESSFUL. RN ASKING FOR ANOTHER RN TO TRY AND OBTAIN ACCESS.
--- NOTE | 2019-06-20 11:13 | NUR ---
REPORT TO TIFFANIE DAVIS TO ASSUME PRIMARY CAER OF PT.
--- NOTE | 2019-06-20 11:16 | NUR ---
REPORT RECEIEVED FROM TIFFANIE ABARCA. ASSUMED CARE
--- NOTE | 2019-06-20 11:24 | NUR ---
Task rn: Piv placed from which basic labs drawn-sent for analysis
[2019-06-20 11:38] LABS: BASOPHILS # (AUTO) 0.02 x10^3/uL (0-0.1); BASOPHILS % (AUTO) 0 % (0-1); EOSINOPHILS # (AUTO) 0.03 x10^3/uL (0-0.4); EOSINOPHILS % (AUTO) 1 % (1-7); LYMPHOCYTES # (AUTO) 1.19 x10^3/uL (1-3.4); LYMPHOCYTES % (AUTO) 21 % (22-44); MD NO; MEAN CORPUSCULAR HGB CONC 32.6 g/dL (33.2-36.2); MEAN CORPUSCULAR VOLUME 104.3 fL (81-97); MEAN PLATELET VOLUME 7.9 fL (7.4-10.4); MONOCYTES % (AUTO) 9 % (2-9); NEUTROPHILS # (AUTO) 3.92 x10^3/uL (1.8-6.8); NEUTROPHILS % (AUTO) 69 % (42-75); PLATELET COUNT 265 x10^3/uL (130-400); RED BLOOD COUNT 3.12 x10^6/uL (4.38-5.82); RED CELL DISTRIBUTION WIDTH 15.9 % (9.4-14.8)
--- NOTE | 2019-06-20 11:39 | NUR ---
PT TO CT AT THIS TIME
[2019-06-20 11:46] LABS: ALBUMIN 2.6 g/dL (3.4-5.0); ANION GAP 6 mmol/L (5-15); CALCIUM 8.7 mg/dL (8.5-10.1); CHLORIDE 106 mmol/L (98-107); CREATININE 0.59 mg/dL (0.7-1.3)
--- NOTE | 2019-06-20 11:49 | NUR ---
PT RESTING IN [facility]. NAD. VSS.
--- NOTE | 2019-06-20 12:24 | NUR ---
NEEDS NEW IV FOR CT
[2019-06-20] MEDS ORDERED: OMNIPAQUE 350 MG/ML, 75ML BOTTLE ONE (13:41)
--- NOTE | 2019-06-20 14:41 | NUR ---
PT RESTING IN [facility]. UP FOR RECHECK
[2019-06-20 15:06] VITALS: BP 98/64
--- NOTE | 2019-06-20 15:08 | NUR ---
Patient given discharge instructions and they have confirmed that they understand the instructions. Patient ambulatory with steady gait. pt left ER in no distress.
== END 2019-06-20 15:09 | disposition home or self-care (01) ==
LOC: ED 10:41
DX: H10.212 Acute toxic conjunctivitis, left eye (principal)
CPT/HCPCS: 36415; 70481; 80048; 82040; 85025; 99285; J7512; Q0163; Q9967

== ENCOUNTER 2019-06-24 17:45 | Inpatient (IN) | payer MEDICARE ==
[~2019-06-24] VITALS: Ht 172.7 cm; Wt 78.6 kg
[~2019-06-24 17:45] MED LIST changes: +FOLIC ACID 1 MG TABLET PO SCH
[2019-06-24] MEDS ORDERED: SODIUM CHLORIDE FLUSH 10ML SYR IVF ONE (18:00)
[2019-06-24 18:36] LABS: BASOPHILS # (AUTO) 0.01 x10^3/uL (0-0.1); BASOPHILS % (AUTO) 0 % (0-1); EOSINOPHILS # (AUTO) 0.23 x10^3/uL (0-0.4); EOSINOPHILS % (AUTO) 5 % (1-7); LYMPHOCYTES # (AUTO) 1.12 x10^3/uL (1-3.4); LYMPHOCYTES % (AUTO) 26 % (22-44); MD NO; MEAN CORPUSCULAR HEMOGLOBIN 33.6 pg (27.5-34.5); MEAN CORPUSCULAR HGB CONC 32.9 g/dL (33.2-36.2); MEAN CORPUSCULAR VOLUME 102.2 fL (81-97); MONOCYTES % (AUTO) 12 % (2-9); NEUTROPHILS # (AUTO) 2.46 x10^3/uL (1.8-6.8); NEUTROPHILS % (AUTO) 57 % (42-75); PLATELET COUNT 260 x10^3/uL (130-400); RED BLOOD COUNT 3.26 x10^6/uL (4.38-5.82); RED CELL DISTRIBUTION WIDTH 15.7 % (9.4-14.8)
[2019-06-24 18:46] LABS: ALBUMIN 2.8 g/dL (3.4-5.0); ANION GAP 5 mmol/L (5-15); CHLORIDE 103 mmol/L (98-107)
[2019-06-24 18:49] LABS: TROPONIN I < 0.015 ng/mL (0.000-0.045)
--- NOTE | 2019-06-24 19:09 | NUR ---
PT WAS SLEEPING. GIVEN FOOD PER MD. ON PRECAUTIONS FOR COVID. VSS. C/O SOME SOB, NO CP, NO NAUSEA. CALL JACQUES IN REACH.
[2019-06-24 19:26] LABS: INTERNATIONAL NORMALIZED RATIO 1.04 (0.93-1.1)
--- NOTE | 2019-06-24 19:47 | NUR ---
pt resting in bed. plan for admit. call eddy in reach. nad. as
[2019-06-24] MEDS ORDERED: LORazepam 2 MG/ML, 1ML IV PRN ×4 (20:00)
[2019-06-24] MEDS ORDERED: FOLIC ACID 5 MG/ML IM ONE (20:00)
[2019-06-24] MEDS ORDERED: LORazepam 0.5MG TABLET PO PRN (20:00)
[2019-06-24] MEDS ORDERED: CHLORDIAZEPOXIDE 10 MG CAPSULE PO SCH (20:00)
[2019-06-24] MEDS ORDERED: ACETAMINOPHEN 325 MG TABLET PO PRN (20:00)
[2019-06-24] MEDS: AZITHROMYCIN 500 MG in SODIUM CHLORIDE 0.9% 250 ML IV SCH (20:00)
[2019-06-24] MEDS ORDERED: DILTIAZEM 5 MG/ML, 5ML IVPush PRN (20:00)
[2019-06-24] MEDS ORDERED: LABETALOL 5MG/ML, 20ML IVPush PRN (20:00)
[2019-06-24] MEDS ORDERED: ONDANSETRON 2MG/ML, 2ML IV PRN (20:00)
[2019-06-24] MEDS ORDERED: GUAIFENESIN/COD200MG-20MG/10ML LIQUID PO PRN (20:00)
[2019-06-24] MEDS ORDERED: LORazepam 1MG TABLET PO PRN ×3 (20:00)
[2019-06-24] MEDS ORDERED: FUROSEMIDE 40 MG/4 ML ONE (20:04)
--- NOTE | 2019-06-24 20:04 | NUR ---
natalio vasquez from pharm. as
[2019-06-24 20:08] LABS: ALBUMIN 2.8 g/dL (3.4-5.0); BILIRUBIN, DIRECT 0.2 mg/dL (0.1-0.2)
[2019-06-24] MEDS: FUROSEMIDE 40 MG/4 ML IV SCH (20:12)
[2019-06-24 20:18] LABS: BILIRUBIN,INDIRECT 0.2 mg/dL (0.0-2.0); BILIRUBIN,TOTAL 0.4 mg/dL (0.2-1.0); TOTAL PROTEIN 8.3 g/dL (6.4-8.2)
--- NOTE | 2019-06-24 20:19 | NUR ---
MEDS PER MAR.AFIB ON MONITOR 80S. NO COMPLAINTS. SLEEPING. CALL JACQUES IN REACH AWAITING BED.
--- NOTE | 2019-06-24 20:58 | NUR ---
report to elis chatterjee on [facility]. as
--- NOTE | 2019-06-24 21:13 | NUR ---
Attempted to start second IV. Patient uncooperative and kicking legs while trying to start IV. Unsuccessful x 1.
[2019-06-24] MEDS: ENOXAPARIN 40 MG/0.4 ML SQ SCH (21:24)
[2019-06-24] MEDS: CHLORDIAZEPOXIDE 25 MG CAPSULE PO SCH (21:24)
--- NOTE | 2019-06-24 21:31 | NUR ---
pt transported by [email or web address] on monitor w/ belongings bags x2. as
[2019-06-24] MEDS ORDERED: ALBUTEROL/IPRATROPIUM 2.5MG/0.5MG, 3 ML NPPB SCH ×2 (22:00→23:00)
[2019-06-24] MEDS: POTASSIUM CHLORIDE 20 MEQ, MAGNESIUM SULFATE 2 GM, THIAMINE 200 MG, MVI ADULT 10 ML, FO... IV SCH (22:13)
[2019-06-24] MEDS: CEFTAROLINE 600 MG in SODIUM CHLORIDE 0.9% 100 ML IV SCH (22:14)
[2019-06-25] VITALS (7 sets, daily range): BP systolic 94–155; BP diastolic 53–87
[2019-06-25 05:25] LABS: CHOL/HDL RATIO 2.7; LDL/HDL RATIO 1.5 (0.5-3.0)
[2019-06-25] MEDS: CHLORDIAZEPOXIDE 25 MG CAPSULE PO SCH ×3 (06:10→21:51)
[2019-06-25] MEDS ORDERED: FOLIC ACID 1 MG TABLET PO SCH (09:00)
[2019-06-25] MEDS: POTASSIUM CHLORIDE 20 MEQ, MAGNESIUM SULFATE 2 GM, THIAMINE 200 MG, MVI ADULT 10 ML, FO... IV SCH (09:00)
[2019-06-25] MEDS ORDERED: MULTIVITAMINS/MINERALS TABLET PO SCH (09:00)
[2019-06-25] MEDS ORDERED: POTASSIUM CHLORIDE 20 MEQ TAB.ER.PRT PO SCH (09:00)
[2019-06-25] MEDS: FUROSEMIDE 40 MG/4 ML IV SCH ×2 (09:42→17:46)
[2019-06-25] MEDS: PANTOPRAZOLE 40MG TABLET PO SCH (09:42)
[2019-06-25] MEDS: CEFTAROLINE 600 MG in SODIUM CHLORIDE 0.9% 100 ML IV SCH ×2 (09:43→21:51)
[2019-06-25] MEDS ORDERED: POTASSIUM CHLORIDE 20 MEQ, MAGNESIUM SULFATE 2 GM, THIAMINE 200 MG, MVI ADULT 10 ML, FO... IV SCH (14:30)
[2019-06-25] MEDS: methylPREDNISolone SOD SUCC 40 MG/ML IV SCH (17:46)
[2019-06-25] MEDS: AZITHROMYCIN 500 MG in SODIUM CHLORIDE 0.9% 250 ML IV SCH (20:30)
[2019-06-25] MEDS: ENOXAPARIN 40 MG/0.4 ML SQ SCH (21:51)
[2019-06-26 01:20] VITALS: BP 97/56
[2019-06-26] MEDS: methylPREDNISolone SOD SUCC 40 MG/ML IV SCH ×2 (01:22→08:14)
[2019-06-26] MEDS: CHLORDIAZEPOXIDE 25 MG CAPSULE PO SCH ×3 (06:13→21:11)
[2019-06-26 06:33] VITALS: BP 104/66
[2019-06-26 06:50] VITALS: BP 147/73
[2019-06-26] MEDS: FUROSEMIDE 40 MG/4 ML IV SCH (08:14)
[2019-06-26] MEDS: PANTOPRAZOLE 40MG TABLET PO SCH (08:14)
[2019-06-26] MEDS ORDERED: THIAMINE 200 MG in DEXTROSE 5% 50 ML IVPB SCH (09:00)
[2019-06-26 09:03] LABS: BASOPHILS # (AUTO) 0.01 x10^3/uL (0-0.1); BASOPHILS % (AUTO) 0 % (0-1); EOSINOPHILS % (AUTO) 0 % (1-7); LYMPHOCYTES # (AUTO) 0.48 x10^3/uL (1-3.4); LYMPHOCYTES % (AUTO) 14 % (22-44); MD NO; MEAN CORPUSCULAR HEMOGLOBIN 33.8 pg (27.5-34.5); MEAN CORPUSCULAR HGB CONC 33.1 g/dL (33.2-36.2); MEAN PLATELET VOLUME 7.9 fL (7.4-10.4); MONOCYTES # (AUTO) 0.07 x10^3/uL (0.2-0.8); MONOCYTES % (AUTO) 2 % (2-9); NEUTROPHILS % (AUTO) 83 % (42-75); PLATELET COUNT 285 x10^3/uL (130-400); RED BLOOD COUNT 3.29 x10^6/uL (4.38-5.82); RED CELL DISTRIBUTION WIDTH 15.6 % (9.4-14.8)
[2019-06-26 09:16] LABS: ALANINE AMINOTRANSFERASE 19 U/L (12-78); ALBUMIN 2.6 g/dL (3.4-5.0); ANION GAP 6 mmol/L (5-15); CHLORIDE 100 mmol/L (98-107)
[2019-06-26 09:19] LABS: ALKALINE PHOSPHATASE 93 U/L (45-117); BILIRUBIN,TOTAL 0.2 mg/dL (0.2-1.0); CREATININE 0.88 mg/dL (0.7-1.3); TOTAL PROTEIN 8.2 g/dL (6.4-8.2)
[2019-06-26] MEDS: CEFTAROLINE 600 MG in SODIUM CHLORIDE 0.9% 100 ML IV SCH (09:36)
[2019-06-26 12:46] VITALS: BP 95/62
[2019-06-26 18:47] VITALS: BP 112/71
[2019-06-26] MEDS: AZITHROMYCIN 500 MG TABLET PO SCH (21:11)
[2019-06-26] MEDS: ENOXAPARIN 40 MG/0.4 ML SQ SCH (21:30)
[2019-06-27 01:29] VITALS: BP 99/66
[2019-06-27] MEDS: CHLORDIAZEPOXIDE 25 MG CAPSULE PO SCH (05:55)
[2019-06-27 07:46] LABS: BASOPHILS # (AUTO) 0.02 x10^3/uL (0-0.1); BASOPHILS % (AUTO) 0 % (0-1); EOSINOPHILS % (AUTO) 0 % (1-7); LYMPHOCYTES # (AUTO) 1.47 x10^3/uL (1-3.4); LYMPHOCYTES % (AUTO) 27 % (22-44); MD NO; MEAN CORPUSCULAR HEMOGLOBIN 32.7 pg (27.5-34.5); MEAN CORPUSCULAR VOLUME 102.2 fL (81-97); MEAN PLATELET VOLUME 7.6 fL (7.4-10.4); MONOCYTES # (AUTO) 0.51 x10^3/uL (0.2-0.8); MONOCYTES % (AUTO) 9 % (2-9); NEUTROPHILS # (AUTO) 3.54 x10^3/uL (1.8-6.8); NEUTROPHILS % (AUTO) 64 % (42-75); PLATELET COUNT 274 x10^3/uL (130-400); RED BLOOD COUNT 3.21 x10^6/uL (4.38-5.82); RED CELL DISTRIBUTION WIDTH 15.5 % (9.4-14.8)
[2019-06-27 07:48] LABS: ALANINE AMINOTRANSFERASE 16 U/L (12-78); ALBUMIN 2.3 g/dL (3.4-5.0); ANION GAP 4 mmol/L (5-15); CALCIUM 8.6 mg/dL (8.5-10.1); CHLORIDE 105 mmol/L (98-107)
[2019-06-27 07:50] LABS: ALKALINE PHOSPHATASE 78 U/L (45-117); BILIRUBIN,TOTAL 0.2 mg/dL (0.2-1.0); TOTAL PROTEIN 7.4 g/dL (6.4-8.2)
[2019-06-27] MEDS: FOLIC ACID 1 MG TABLET PO SCH (08:23)
[2019-06-27] MEDS: THIAMINE 100MG TABLET PO SCH (08:24)
[2019-06-27] MEDS: MULTIVITAMIN 1 TABLET PO SCH (08:24)
[2019-06-27] MEDS: PANTOPRAZOLE 40MG TABLET PO SCH (08:24)
[2019-06-27 08:25] VITALS: BP 108/72
[2019-06-27 12:38] VITALS: BP 104/69
[2019-06-27 18:50] VITALS: BP 108/72
[2019-06-27] MEDS: ENOXAPARIN 40 MG/0.4 ML SQ SCH (20:35)
[2019-06-27] MEDS: AZITHROMYCIN 500 MG TABLET PO SCH (20:35)
[2019-06-28 00:50] VITALS: BP 108/70
[2019-06-28 08:20] VITALS: BP 112/64
[2019-06-28] MEDS: MULTIVITAMIN 1 TABLET PO SCH (08:31)
[2019-06-28] MEDS: THIAMINE 100MG TABLET PO SCH (08:31)
[2019-06-28] MEDS: FOLIC ACID 1 MG TABLET PO SCH (08:31)
[2019-06-28] MEDS: PANTOPRAZOLE 40MG TABLET PO SCH (08:32)
[2019-06-28 14:00] VITALS: BP 103/65
[2019-06-28 18:32] VITALS: BP 105/62
[2019-06-28] MEDS: ENOXAPARIN 40 MG/0.4 ML SQ SCH (19:59)
[2019-06-28] MEDS ORDERED: AZITHROMYCIN 500 MG TABLET PO SCH (20:00)
[2019-06-29 04:00] VITALS: BP 100/60
[2019-06-29 04:50] VITALS: BP 100/60
[2019-06-29 07:03] VITALS: BP 95/63
[2019-06-29] MEDS: THIAMINE 100MG TABLET PO SCH (07:31)
[2019-06-29] MEDS: FOLIC ACID 1 MG TABLET PO SCH (07:31)
[2019-06-29] MEDS: PANTOPRAZOLE 40MG TABLET PO SCH (07:31)
[2019-06-29] MEDS: MULTIVITAMIN 1 TABLET PO SCH (07:31)
[2019-06-29 07:50] LABS: CALCIUM 8.7 mg/dL (8.5-10.1); CHLORIDE 104 mmol/L (98-107); CREATININE 0.67 mg/dL (0.7-1.3)
[2019-06-29 08:04] LABS: BASOPHILS # (AUTO) 0.04 x10^3/uL (0-0.1); BASOPHILS % (AUTO) 1 % (0-1); EOSINOPHILS # (AUTO) 0.01 x10^3/uL (0-0.4); EOSINOPHILS % (AUTO) 0 % (1-7); LYMPHOCYTES # (AUTO) 2.13 x10^3/uL (1-3.4); LYMPHOCYTES % (AUTO) 33 % (22-44); MD NO; MEAN CORPUSCULAR HEMOGLOBIN 32.6 pg (27.5-34.5); MEAN CORPUSCULAR HGB CONC 31.9 g/dL (33.2-36.2); MEAN CORPUSCULAR VOLUME 102.1 fL (81-97); MONOCYTES # (AUTO) 0.67 x10^3/uL (0.2-0.8); MONOCYTES % (AUTO) 10 % (2-9); NEUTROPHILS # (AUTO) 3.71 x10^3/uL (1.8-6.8); NEUTROPHILS % (AUTO) 57 % (42-75); PLATELET COUNT 320 x10^3/uL (130-400); RED BLOOD COUNT 3.53 x10^6/uL (4.38-5.82); RED CELL DISTRIBUTION WIDTH 15.6 % (9.4-14.8)
[2019-06-29 08:11] LABS: ANION GAP 4 mmol/L (5-15)
[2019-06-29] MEDS: ENOXAPARIN 40 MG/0.4 ML SQ SCH (21:03)
[2019-06-30 07:48] VITALS: BP 101/58
[2019-06-30] MEDS: THIAMINE 100MG TABLET PO SCH (07:56)
[2019-06-30] MEDS: PANTOPRAZOLE 40MG TABLET PO SCH (07:56)
[2019-06-30] MEDS: MULTIVITAMIN 1 TABLET PO SCH (07:56)
[2019-06-30] MEDS: FOLIC ACID 1 MG TABLET PO SCH (07:56)
[2019-06-30 12:41] VITALS: BP 111/56
[2019-06-30 19:38] VITALS: BP 116/64
[2019-06-30] MEDS: TRAZODONE 50MG TABLET PO PRN (20:50)
[2019-06-30] MEDS: ENOXAPARIN 40 MG/0.4 ML SQ SCH (20:50)
[2019-07-01 01:24] VITALS: BP 110/57
[2019-07-01 07:04] VITALS: BP 89/61
[2019-07-01] MEDS: THIAMINE 100MG TABLET PO SCH (08:06)
[2019-07-01] MEDS: MULTIVITAMIN 1 TABLET PO SCH (08:06)
[2019-07-01] MEDS: PANTOPRAZOLE 40MG TABLET PO SCH (08:06)
[2019-07-01] MEDS: FOLIC ACID 1 MG TABLET PO SCH (08:06)
[2019-07-01 08:10] VITALS: BP 107/69
[2019-07-01 12:00] VITALS: BP 97/66
[2019-07-01] MEDS ORDERED: ALBUTEROL/IPRATROPIUM 2.5MG/0.5MG, 3 ML ONE (12:04)
[2019-07-01] MEDS ORDERED: ALBUTEROL/IPRATROPIUM 2.5MG/0.5MG, 3 ML NPPB PRN ×2 (12:30)
[2019-07-01 19:27] VITALS: BP 103/69
[2019-07-01] MEDS: TRAZODONE 50MG TABLET PO PRN (20:32)
[2019-07-01] MEDS: ENOXAPARIN 40 MG/0.4 ML SQ SCH (20:32)
[2019-07-02 01:47] VITALS: BP 97/63
[2019-07-02 06:29] VITALS: BP 93/57
[2019-07-02] MEDS: MULTIVITAMIN 1 TABLET PO SCH (08:21)
[2019-07-02] MEDS: FOLIC ACID 1 MG TABLET PO SCH (08:21)
[2019-07-02] MEDS: PANTOPRAZOLE 40MG TABLET PO SCH (08:21)
[2019-07-02] MEDS: THIAMINE 100MG TABLET PO SCH (08:21)
[2019-07-02] MEDS ORDERED: ALBU8.5H8 IH (10:22)
== END 2019-07-02 11:48 | disposition home or self-care (01) | DRG 189 ==
LOC: ED 17:54 → SUATTDRO 19:28 → EDIP 19:38 → ICU 21:34 → 4EST 06-25 17:30
PROVIDERS: ADMIT Hospitalist; ATTEND Family Medicine
DX: J96.01 Acute respiratory failure with hypoxia (principal); J12.9 Viral pneumonia, unspecified; I50.31 Acute diastolic (congestive) heart failure; J44.0 Chronic obstructive pulmonary disease with (acute) lower respiratory infection; F10.239 Alcohol dependence with withdrawal, unspecified; I48.20 Chronic atrial fibrillation, unspecified; D68.69 Other thrombophilia; R45.851 Suicidal ideations; J44.1 Chronic obstructive pulmonary disease with (acute) exacerbation; I11.0 Hypertensive heart disease with heart failure; G40.909 Epilepsy, unspecified, not intractable, without status epilepticus; Z86.14 Personal history of Methicillin resistant Staphylococcus aureus infection; D53.9 Nutritional anemia, unspecified; Z66 Do not resuscitate; Z59.0 Homelessness; Z91.19 Patient's noncompliance with other medical treatment and regimen; Z20.828 Contact with and (suspected) exposure to other viral communicable diseases
CPT/HCPCS: 36415; 71045; 80048; 80053; 80061; 80076; 82040; 82607; 83605; 83735; 83880; 84100; 84145; 84443; 84484; 85025; 85610; 87040; 87081; 93005; 93306; 94640; 99285; G0378; J0456; J0712; J1650; J1940; J3411; J3475; J3480; J7042; J2920; J7050; J7512

== ENCOUNTER 2019-07-10 03:10 | Emergency (ER) | payer MEDICARE, OTHER ==
[~2019-07-10] VITALS: Ht 175.3 cm; Wt 80.3 kg
[~2019-07-10 03:10] MED LIST changes: +ALBU8.5H8 IH; -FOLIC ACID 1 MG TABLET PO SCH
== END 2019-07-10 04:10 | disposition home or self-care (01) ==
LOC: ED 03:30
DX: F10.120 Alcohol abuse with intoxication, uncomplicated (principal); Z76.0 Encounter for issue of repeat prescription; I11.0 Hypertensive heart disease with heart failure; I50.9 Heart failure, unspecified; I48.91 Unspecified atrial fibrillation; F17.200 Nicotine dependence, unspecified, uncomplicated; Y90.9 Presence of alcohol in blood, level not specified
CPT/HCPCS: 99281

== ENCOUNTER 2019-07-28 13:06 | Emergency (ER) | payer SELFPAY ==
[~2019-07-28] VITALS: Ht 175.3 cm; Wt 75.0 kg
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
--- NOTE | 2019-07-28 13:38 | NUR ---
PT PROVIDED WITH MEAL TRAY AT THIS TIME.
--- NOTE | 2019-07-28 14:33 | NUR ---
PT 83% RA, REQUIRING 4L NC TO STAY ABOVE 90%. NOTIFIED, WILL ORDER CXR.
--- NOTE | 2019-07-28 15:29 | NUR ---
PT SLEEPING ON GURNEY, CHEST RISE AND FALL OBSERVED. VSS. AWAITING CXR.
[2019-07-28 16:24] VITALS: BP 124/53
--- NOTE | 2019-07-28 16:28 | NUR ---
PT AMBULATED W/ A STEADY GAIT DOWN THE ALLEN.
--- NOTE | 2019-07-28 16:40 | NUR ---
Patient given discharge instructions and they have confirmed that they understand the instructions. Patient ambulatory with steady gait.
== END 2019-07-28 16:41 | disposition home or self-care (01) ==
LOC: ED 13:17
DX: F10.220 Alcohol dependence with intoxication, uncomplicated (principal); I11.0 Hypertensive heart disease with heart failure; I50.9 Heart failure, unspecified; I48.91 Unspecified atrial fibrillation; F17.200 Nicotine dependence, unspecified, uncomplicated; G40.909 Epilepsy, unspecified, not intractable, without status epilepticus; R07.9 Chest pain, unspecified
CPT/HCPCS: 71045; 99283

== ENCOUNTER 2019-07-29 12:38 | Emergency (ER) | payer SELFPAY ==
[~2019-07-29] VITALS: Ht 175.3 cm; Wt 80.0 kg
--- NOTE | 2019-07-29 12:58 | NUR ---
TASK RN NOTE: CRACKERS AND PEANUT BUTTER AND WATER PROVIDED. PT WATCHING TELEVISION. NAD NOTED AT THIS TIME. SIDE RAILS UP, CALL LIGHT IN REACH. URINAL IN REACH.
--- NOTE | 2019-07-29 12:59 | NUR ---
THIS PT WAS BIB CARE FLIGHT FOR ETOH, PT AWAKE AND ALERT, URINAL AT BEDSIDE, SITTING UP IN BED, WATCHING TV, IN VIEW OF NURSES STATION. VSS, NO SIGNS OF DISTRESS, WILL CONTINUE TO MONITOR.
--- NOTE | 2019-07-29 14:01 | NUR ---
PT CONDITION UNCHANGED, WILL CONTINUE TO MONITOR.
[2019-07-29 14:36] VITALS: BP 109/62
--- NOTE | 2019-07-29 15:12 | NUR ---
TASK RN NOTE: PT LAYING BACK IN BED, ASLEEP. NAD NOTED AT THIS TIME. RESPIRATIONS EVEN AND UNLABORED. SIDE RAILS UP, CALL LIGHT IN REACH.
--- NOTE | 2019-07-29 15:36 | NUR ---
PT AMBULATORY TO BATHROOM, GAIT AT BASELINE.
== END 2019-07-29 15:47 | disposition home or self-care (01) ==
LOC: ED 13:22
DX: F10.229 Alcohol dependence with intoxication, unspecified (principal); I10 Essential (primary) hypertension
CPT/HCPCS: 99283

== ENCOUNTER 2019-09-15 10:44 | Emergency (ER) | payer SELFPAY ==
[~2019-09-15] VITALS: Ht 170.2 cm; Wt 81.8 kg
[~2019-09-15 10:44] MED LIST changes: +MULT-449 PO; -MULT1TAB60 PO
[2019-09-15 10:49] VITALS: BP 131/69
--- NOTE | 2019-09-15 14:38 | NUR ---
EDGE KITTER: ATTEMPT TO AMBULATE PATIENT. PT UNABLE TO SIT WITHOUT FALLING. PT PLACED IN BED, BED RAILS UP X 2
--- NOTE | 2019-09-15 14:58 | NUR ---
PATIENT AMBULATORY WITH STEADY GAIT TO DISCHARGE. ESCORTED OUT WITH SECURITY, PATIENT WAS STATING "I PACK A POWERFUL PUNCH" WHILE HITTING FIST INTO ROBERTS AND INTO OTHER HAND.
== END 2019-09-15 15:00 | disposition home or self-care (01) ==
LOC: ED 12:11
DX: F10.229 Alcohol dependence with intoxication, unspecified (principal); R41.82 Altered mental status, unspecified; Y90.9 Presence of alcohol in blood, level not specified
CPT/HCPCS: 99283

== ENCOUNTER 2019-09-15 21:21 | Emergency (ER) | payer SELFPAY ==
[~2019-09-15] VITALS: Ht 172.7 cm; Wt 80.0 kg
[2019-09-15 21:24] VITALS: BP 116/67
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
--- NOTE | 2019-09-15 22:48 | NUR ---
PT WAS ABLE TO AMBULATE WITH STEADY GAIT AND WAS ESCORTED OUT BY SECURITY AFTER THREATENING TO PUNCH STAFF AND ROBERTS.
== END 2019-09-15 22:50 ==
LOC: ED 21:25
DX: F10.220 Alcohol dependence with intoxication, uncomplicated (principal); Z72.9 Problem related to lifestyle, unspecified; I11.0 Hypertensive heart disease with heart failure; I50.9 Heart failure, unspecified; I48.91 Unspecified atrial fibrillation; Y90.9 Presence of alcohol in blood, level not specified
CPT/HCPCS: 99283

== ENCOUNTER 2019-09-30 08:20 | Emergency (ER) | payer SELFPAY ==
[~2019-09-30] VITALS: Ht 172.7 cm; Wt 80.0 kg
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
[2019-09-30 10:11] VITALS: BP 119/71
--- NOTE | 2019-09-30 10:18 | NUR ---
alfonzo here to take report
[2019-09-30] MEDS ORDERED: HYDROcodone/APAP 5/325 TABLET PO ONE (10:30)
[2019-09-30] MEDS ORDERED: KETOROLAC 30 MG/1 ML IM ONE (10:30)
[2019-09-30] MEDS ORDERED: HYDROcodone/APAP 5/325 TABLET ONE (10:34)
[2019-09-30] MEDS ORDERED: KETOROLAC 30 MG/1 ML ONE (10:34)
== END 2019-09-30 10:53 | disposition home or self-care (01) ==
LOC: ED 09:53
DX: S42.211A Unspecified displaced fracture of surgical neck of right humerus, initial encounter for closed fracture (principal); I87.2 Venous insufficiency (chronic) (peripheral); R60.0 Localized edema; I11.0 Hypertensive heart disease with heart failure; I50.9 Heart failure, unspecified; I48.91 Unspecified atrial fibrillation; Y08.89XA Assault by other specified means, initial encounter; Y93.89 Activity, other specified; Y92.488 Other paved roadways as the place of occurrence of the external cause; Y99.8 Other external cause status
CPT/HCPCS: 73030; 73130; 96372; 99284; J1885; 29105

== ENCOUNTER 2019-10-02 00:51 | Emergency (ER) | payer SELFPAY ==
[~2019-10-02] VITALS: Ht 172.7 cm; Wt 80.0 kg
[2019-10-02 00:52] VITALS: BP 138/91
== END 2019-10-02 01:51 | disposition home or self-care (01) ==
LOC: ED 01:01
DX: S42.214A Unspecified nondisplaced fracture of surgical neck of right humerus, initial encounter for closed fracture (principal); F17.200 Nicotine dependence, unspecified, uncomplicated; I11.0 Hypertensive heart disease with heart failure; I50.9 Heart failure, unspecified; I48.91 Unspecified atrial fibrillation; W18.39XA Other fall on same level, initial encounter; Y93.89 Activity, other specified; Y92.89 Other specified places as the place of occurrence of the external cause; Y99.8 Other external cause status
CPT/HCPCS: 99283

== ENCOUNTER 2019-10-04 10:01 | Emergency (ER) | payer SELFPAY ==
[~2019-10-04] VITALS: Ht 170.2 cm; Wt 78.8 kg
[2019-10-04 10:04] VITALS: BP 112/61
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
--- NOTE | 2019-10-04 11:49 | NUR ---
ASSISTED WITH REPOSITIONING OF SLING. PT PROVIDED WITH [employer]
== END 2019-10-04 12:21 | disposition home or self-care (01) ==
LOC: ED 10:17
DX: S42.224A 2-part nondisplaced fracture of surgical neck of right humerus, initial encounter for closed fracture (principal); X58.XXXA Exposure to other specified factors, initial encounter; Y93.89 Activity, other specified; Y92.488 Other paved roadways as the place of occurrence of the external cause; Y99.8 Other external cause status
CPT/HCPCS: 99281

== ENCOUNTER 2019-12-08 16:36 | Emergency (ER) | payer SELFPAY ==
[2019-12-08 16:42] VITALS: BP 109/71
--- NOTE | 2019-12-08 16:47 | NUR ---
BIB [facility]. PT FOUND SLEEPING ON GROUND, PT UNABLE TO AMBULATE UPON EMS ARRIVAL. +ETOH. PT MUMMBLES ANSWERS WHEN ASKED QUESTIONS, THEN GOES RIGHT BACK TO SLEEP. PT CONNECTED TO MONITORING. CALL LIGHT IN REACH.
--- NOTE | 2019-12-08 16:48 | NUR ---
PER PROVIDER, PT TO BE MTF.
--- NOTE | 2019-12-08 19:10 | NUR ---
PT SLEEPING ON GURNEY. RESP EVEN AND UNLABORED.
--- NOTE | 2019-12-08 21:04 | NUR ---
PT SLEEPING ON GURNEY. RESP EVEN AND UNLABORED.
== END 2019-12-08 21:55 | disposition home or self-care (01) ==
LOC: ED 19:10
DX: F10.220 Alcohol dependence with intoxication, uncomplicated (principal); I11.0 Hypertensive heart disease with heart failure; I50.9 Heart failure, unspecified; I48.91 Unspecified atrial fibrillation; G40.909 Epilepsy, unspecified, not intractable, without status epilepticus; Y90.9 Presence of alcohol in blood, level not specified
CPT/HCPCS: 99283

== ENCOUNTER 2020-12-15 19:17 | Emergency (ER) | payer OTHER ==
[~2020-12-15] VITALS: Ht 172.7 cm; Wt 75.0 kg
[~2020-12-15 19:17] MED LIST changes: +ACET325T26 PO; +AMOX1TAB12 PO; -CLIN300C8 PO; +CLIN300C9 PO; +ERYT1OIN5 EACHEYE; -FOLI-17 NG; +FOLI1TAB32 NG; +GUAI600T31 PO; +IPRA4AER INH; +ITRA100C PO; +MOXI3DRO11 EACHEYE; +MULT-482 PO; +NICO-486 TD; +POLY10DR3 EACHEYE; +SENN-99 PO; +SULF-23 PO
[2020-12-15 19:22] VITALS: BP 101/56
--- NOTE | 2020-12-15 19:24 | NUR ---
PT BIB EMS FOR ETOH
--- NOTE | 2020-12-15 20:04 | NUR ---
ASSUMED CARE OF PT FOR DISCHARGE ONLY. PT AMBULATED WITH WALKER TO DISCHARGE DESK. PT GIVEN TAXI VOUCHER TO GET TO [facility]OMELESS ASSISTED ON [address] REQUESTED BY PT. PT VERBALIZED UNDERSTANDING OF DISCHARGE INSTRUCTIONS AND EDUCATION.
== END 2020-12-15 20:07 | disposition home or self-care (01) ==
LOC: ED 19:30
DX: F10.220 Alcohol dependence with intoxication, uncomplicated (principal); Y90.9 Presence of alcohol in blood, level not specified; I11.0 Hypertensive heart disease with heart failure; I50.9 Heart failure, unspecified; I48.91 Unspecified atrial fibrillation
CPT/HCPCS: 99283